=== PATIENT | female | born 1935 | race Caucasian/White ===

== ENCOUNTER → 2016-11-20 | Outpatient (CLI) | payer OTHER ==
[~2016-11-20] MED LIST: ACET-1256 PO; ASPCH81X PO; CHOL1CAP57 PO; CLOB-65 EXT; DIGO0.122 PO; FRS/40 PO; HMLI SC; INSDGI SC; LEVO50TA6 PO; METO50TA16 PO; METR0.7527 TOP; POTA-327 PO; PRED10TA PO; TRAM-453 PO; XRL15 PO; XRL20 PO; [UNRECOGNIZED DRUG - CODE] PO
[2016-11-20 13:42] LABS: ALT/SGPT 14 U/L (12-78); BLOOD UREA NITROGEN 17 mg/dl (7-18); BUN/CREATININE RATIO 23.7 (10-20); CALCIUM 8.8 mg/dl (8.5-10.1); CARBON DIOXIDE 29 mmol/L (21-32); CHLORIDE 108 mmol/L (98-107); GLUCOSE 83 mg/dl (70-99); POTASSIUM 3.9 mmol/L (3.5-5.1); SODIUM 145 mmol/L (136-145)
== END | disposition home or self-care (01) ==
LOC: C.LABMFLN 16:19
PROVIDERS: ATTEND Family Medicine
DX: E78.5 Hyperlipidemia, unspecified (principal); I10 Essential (primary) hypertension; E11.40 Type 2 diabetes mellitus with diabetic neuropathy, unspecified; E11.9 Type 2 diabetes mellitus without complications; E03.9 Hypothyroidism, unspecified; E55.9 Vitamin D deficiency, unspecified

== ENCOUNTER → 2017-03-28 | Outpatient (CLI) | payer OTHER ==
[2017-03-28 13:32] LABS: HEMATOCRIT 45.8 % (37-47); MEAN CELL VOLUME 96.8 fL (80-100); MEAN CORPUSCULAR HEMOGLOBIN 30.9 pg (25-34); MEAN CORPUSCULAR HGB CONC 31.9 g/dl (32-36); MEAN PLATELET VOLUME 9.9 fL (7.4-10.4); PLATELET COUNT 201 K/uL (130-400); RED BLOOD COUNT 4.73 M/uL (4.2-5.4)
[2017-03-28 13:34] LABS: ESTIMATED AVERAGE GLUCOSE 134 mg/dl; HA1C FLAG Normal (Normal)
[2017-03-28 14:18] LABS: BLOOD UREA NITROGEN 22 mg/dl (7-18); BUN/CREATININE RATIO 33.3 (10-20); CARBON DIOXIDE 28 mmol/L (21-32); CHLORIDE 107 mmol/L (98-107); CREATININE 0.66 mg/dl (0.60-1.20); GLUCOSE 52 mg/dl (70-99); POTASSIUM 3.8 mmol/L (3.5-5.1); SODIUM 143 mmol/L (136-145)
[2017-03-28 14:38] LABS: RATIO 6.8 mcg/mg (0-30.0)
[2017-03-28 14:49] LABS: CALCIUM 8.8 mg/dl (8.5-10.1)
== END | disposition home or self-care (01) ==
LOC: C.LABMFLN 11:52
PROVIDERS: ATTEND Family Medicine
DX: E11.9 Type 2 diabetes mellitus without complications (principal); E03.9 Hypothyroidism, unspecified; G50.0 Trigeminal neuralgia

== ENCOUNTER → 2017-04-25 | Outpatient (CLI) | payer OTHER ==
[2017-04-25 13:42] LABS: ESTIMATED AVERAGE GLUCOSE 134 mg/dl; HA1C FLAG Normal (Normal)
[2017-04-25 13:54] LABS: ALT/SGPT 19 U/L (12-78); CHOLESTEROL 216 mg/dl (0-200); CHOLESTEROL/HDL RATIO 5.3; HDL CHOLESTEROL 41 mg/dl; TRIGLYCERIDES 143 mg/dl (0-150); VERY LOW DENSITY LIPOPROT CALC 29 mg/dl
== END | disposition home or self-care (01) ==
LOC: C.LABMFLN 08:44
PROVIDERS: ATTEND Family Medicine
DX: E11.9 Type 2 diabetes mellitus without complications (principal); E78.5 Hyperlipidemia, unspecified; E03.9 Hypothyroidism, unspecified; E55.9 Vitamin D deficiency, unspecified

== ENCOUNTER → 2017-04-30 | Outpatient (CLI) | payer OTHER ==
--- NOTE | 2017-04-30 15:38 | MAMMOGRAPHY REPORT ---
UNILATERAL RIGHT DIGITAL DIAGNOSTIC MAMMOGRAM TOMOSYNTHESIS WITH CAD AND TARGETED RIGHT ULTRASOUND: CLINICAL HISTORY: The patient reports intermittent burning right breast pain for approximately 2 davida hs, which is most prominent in the right inferior breast but is somewhat diffuse. She denies any pal pable lumps, skin erythema, or other complaints. History of left mastectomy 29 years ago. TECHNIQUE: Breast tomosynthesis in addition to standard 2D mammography was performed. Current study was also evaluated with a Computer Aided Detection (CAD) system. Right CC and MLO 2-D and tomosynthe sis images were obtained. COMPARISON: Comparison is made to exams dated: 07/29/2016 aspiration, 07/29/2016 mammogram, 6 mammogram, 07/10/2016 ultrasound, 07/02/2016 mammogram, and 04/21/2015 mammogram - [facility]. BREAST COMPOSITION: There are scattered areas of fibroglandular density in the right breast. FINDINGS: There are no suspicious masses, calcifications, or areas of architectural distortion noted in the right breast. There has been no significant interval change compared to prior exams. Benign vascular calcifications are again noted. Targeted ultrasound was performed of the area of most prominent pain pointed out by the patient, in t he right inferior breast along the inframammary fold. No suspicious masses or other suspicious sonog raphic abnormalities are evident. IMPRESSION: ACR BI-RADS CATEGORY 2: BENIGN, TARGETED ULTRASOUND ACR BI-RADS CATEGORY 2: BENIGN No suspicious mammographic or sonographic abnormality to explain intermittent right breast burning pa in. There is no mammographic or targeted sonographic evidence of malignancy. Recommend clinical fol low-up for right breast pain, and recommend routine screening mammograms of the right breast in one y ear. The patient has been verbally notified of the results. Approximately 10% of breast cancers are not detected with mammography. A negative mammographic report should not delay biopsy if a clinically suggestive mass is present. Keyona Corea M.D. /:04/30/2017 11:25:39 [employer] Alt[employer]: Riddhi SANTORO)([place]), [facility] letter sent: Normal 1/2 BI-RADS Code: ACR BI-RADS Category 2: Benign Ultrasound BI-RADS: ACR BI-RADS Category 2: Benign
== END | disposition home or self-care (01) ==
LOC: C.MAMM 11:02
PROVIDERS: ATTEND Family Medicine
DX: N64.4 Mastodynia (principal); Z85.3 Personal history of malignant neoplasm of breast

== ENCOUNTER → 2017-09-26 | Outpatient (CLI) | payer OTHER ==
[2017-09-26 13:06] LABS: BLOOD UREA NITROGEN 20 mg/dl (7-18); BUN/CREATININE RATIO 30.8 (10-20); CALCIUM 8.6 mg/dl (8.5-10.1); CARBON DIOXIDE 28 mmol/L (21-32); CHLORIDE 108 mmol/L (98-107); CREATININE 0.66 mg/dl (0.60-1.20); GLUCOSE 103 mg/dl (70-99); POTASSIUM 3.5 mmol/L (3.5-5.1); SODIUM 141 mmol/L (136-145)
[2017-09-26 13:17] LABS: ESTIMATED AVERAGE GLUCOSE 143 mg/dl; HA1C FLAG Normal (Normal)
== END | disposition home or self-care (01) ==
LOC: C.LABMFLN 10:07
PROVIDERS: ATTEND Family Medicine
DX: Z00.00 Encounter for general adult medical examination without abnormal findings (principal); E78.5 Hyperlipidemia, unspecified; E11.9 Type 2 diabetes mellitus without complications; E55.9 Vitamin D deficiency, unspecified

== ENCOUNTER → 2017-12-22 | Outpatient (CLI) | payer OTHER | END | disposition home or self-care (01) | LOC: C.LABMFLN 10:52 | PROVIDERS: ATTEND Physician Assistant | DX: G50.0 Trigeminal neuralgia (principal) ==

== ENCOUNTER 2020-12-07 23:00 | Inpatient (IN) ==
--- NOTE | 2020-12-07 23:16 | Emergency Department Note ---
History of Present Illness General Chief complaint: Fall Stated complaint: FALL, RIGHT LEG PAIN Time Seen by Provider: 12/07/20 23:02 Source: patient Mode of arrival: EMS Limitations: no limitations History of Present Illness Provider complaint: fall, right hip pain Onset (ago): hour(s) 1 Location: hip Radiation: non-radiation Severity: moderate Pain Consistency: + constant Quality: + constant Relieved By: + none Exacerbated By: + movement Associated symptoms: + denies other symptoms Treatments prior to arrival: none This is an 85-year-old female presents the emergency department via EMS after a fall at home. Patient states she was feeling her usual state of health and is uncertain how she became off balance and fell, however she landed she thinks on her buttocks and right hip. Patient denies any prior injury or surgery to the right hip. Patient states she is pain at the right hip, worse with movement, however otherwise nonradiating. Patient denies any coming paresthesias. Patient denies any head injury or loss of consciousness. She denies any neck or back pain, chest pain, abdominal pain, trouble breathing. Patient denies any nausea or vomiting. Patient states she was headed towards bed, she did eat supper earlier in the evening, and did take usual Tylenol approximately 2 hours prior to the fall. Patient does live with family however they were already had to bed and did not directly witness her fall. Patient does use anticoagulation as she has a history of atrial fibrillation. Patient denies any other recent medication changes. Patient states she did receive her first Covid vaccine yesterday and has some slight soreness in the proximal right upper extremity from less. Patient denies any other change in diet or hydration, no other change in activity, no other known sick contacts or exposure to coronavirus. Pt seen during a time of high acuity and national emergency pandemic while wearing PPE. Home Medications Medication Instructions Recorded Confirmed Type cholecalciferol (vitamin D3) 50 2,000 units PO DAILY #90 cap 04/13/19 12/07/20 Rx mcg (2,000 unit) capsule nitroglycerin 0.4 mg sublingual 0.4 mg SL DIRECTED PRN 04/15/19 12/07/20 History tablet red yeast rice 600 mg capsule 600 mg PO BID cap 10/18/19 12/07/20 History levothyroxine 50 mcg tablet 50 mcg PO DAILY #90 tab 03/24/20 12/07/20 Rx apixaban 5 mg tablet 5 mg PO BID 08/08/20 12/07/20 History prednisone 10 mg tablet 10 mg PO DAILY #90 tab 08/21/20 12/07/20 Rx clobetasol 0.05 % topical cream 1 applic TOPICAL DAILY #30 g 09/08/20 12/07/20 Rx potassium chloride 20 mEq 40 meq PO DAILY 09/08/20 12/07/20 History tablet,extended release(part/cryst) torsemide 10 mg tablet 30 mg PO DAILY tab 09/08/20 12/07/20 History insulin lispro 100 unit/mL 6 unit SQ .COMPLEX #30 ml 09/25/20 12/07/20 Rx subcutaneous solution blood sugar diagnostic #100 ea 10/17/20 10/26/20 Rx metoprolol tartrate 25 mg tablet 25 mg PO BID #180 tab 10/26/20 12/07/20 Rx silver sulfadiazine 1 % topical 1 applic TOPICAL BID #25 g 11/07/20 12/07/20 Rx cream insulin glargine [Lantus U-100 24 unit SQ QAM 12/07/20 12/07/20 History Insulin] sertraline 50 mg PO DAILY 12/07/20 12/07/20 History Allergies Allergy/AdvReac Type Severity Reaction Status Date / Time Iodinated Contrast Media Allergy Intermediate HIVES PER Verified 12/07/20 23:24 PATIENT acetaminophen [From Percocet] Allergy Unknown CAN'T Verified 12/07/20 23:24 REMEMBER atorvastatin Allergy Unknown CAN'T Verified 12/07/20 23:24 REMEMBER blueberry Allergy Unknown CAN'T Verified 12/07/20 23:24 REMEMBER codeine Allergy Unknown CAN'T Verified 12/07/20 23:24 REMEMBER ezetimibe Allergy Unknown CAN'T Verified 12/07/20 23:24 REMEMBER fluvoxamine Allergy Unknown CAN'T Verified 12/07/20 23:24 REMEMBER glyburide Allergy Unknown CAN'T Verified 12/07/20 23:24 REMEMBER meperidine Allergy Unknown CAN'T Verified 12/07/20 23:24 REMEMBER metformin Allergy Unknown CAN'T Verified 12/07/20 23:24 REMEMBER minocycline Allergy Unknown CAN'T Verified 12/07/20 23:24 REMEMBER mycophenolate mofetil Allergy Unknown CAN'T Verified 12/07/20 23:24 REMEMBER oxycodone Allergy Unknown CAN'T Verified 12/07/20 23:24 REMEMBER pioglitazone Allergy Unknown CAN'T Verified 12/07/20 23:24 REMEMBER pravastatin Allergy Unknown CAN'T Verified 12/07/20 23:24 REMEMBER Vdxvxed-Tdi-Jnf Reductase Allergy Unknown CAN'T Verified 12/07/20 23:24 Inhibitor REMEMBER Sulfa (Sulfonamide Allergy Unknown CAN'T Verified 12/07/20 23:24 Antibiotics) REMEMBER tetracycline Allergy Unknown CAN'T Verified 12/07/20 23:24 REMEMBER tramadol Allergy Unknown CAN'T Verified 12/07/20 23:24 REMEMBER lisinopril AdvReac Mild Cough - Verified 10/26/20 10:50 Prinizide Past Med/Surg History Medical History Hypoxemia Interstitial lung disease Personal history of breast cancer Surgical History H/O cardiac catheterization H/O cataract extraction bilateral H/O tubal ligation History of modified radical mastectomy History of subtotal thyroidectomy Hx of cholecystectomy S/P arthrocentesis Total knee replacement status Family History Father Hypertension Diabetes Mother Stroke Mother Diabetes Aunt Breast cancer Brother Prostate cancer Other Myocardial infarction Denies family history of Ovarian cancer Lung cancer Colorectal cancer Social History Smoking Status: Never smoker Second Hand Exposure: No; Hx Alcohol Use: No Hx Substance Use: No Preferred Language: Wolof Communication Ability: Effective Visual Impairment: Partially Limited Hearing Ability: Hard of Hearing Staffing Assistant Required: No Beliefs That Will Affect Care: None marital status: / Current Living Situation: Alone Current Living Situation Comment: Lives at [facility] current occupational status: retired How many Children do You have: 3 Feels Safe at Home: Yes Childhood Exposure to Second-Hand Smoke: Yes Diet Comment: diabetic diet caffeine: Yes (1.5 cups a day, occasional peach tea) during the past year weight has: remained stable Dental Care, Regularly: Yes Physical Activity Frequency: Does not Exercise Seatbelt Use: always Sunscreen Use: No Assistive Devices: Denture - Upper, Glasses and Oxygen - at Night Review of Systems See HPI for pertinent positives & negatives. and A total of 10 systems reviewed and were otherwise negative Physical Exam Vital Signs Vital Signs - 24 hr 12/07/20 23:08 12/08/20 00:05 12/08/20 00:30 Temperature 36.7 C Temperature Source Oral Pulse Rate 67 68 64 Pulse Rate from SpO2 Sensor 68 64 Respiratory Rate 18 21 21 Blood Pressure 181/77 H 137/55 L 137/66 Blood Pressure Mean 111 82 89 Pulse Oximetry 90 95 95 Oxygen Delivery Method Room Air Room Air Sepsis Recent Fever Within 48 Hours No Sepsis New/Unexplained Change in Mental Status No Sepsis Action Taken by Nursing No Action Required 12/08/20 01:01 Temperature Temperature Source Pulse Rate 69 Pulse Rate from SpO2 Sensor 67 Respiratory Rate 22 Blood Pressure 134/87 Blood Pressure Mean 102 Pulse Oximetry 93 Oxygen Delivery Method Room Air Sepsis Recent Fever Within 48 Hours Sepsis New/Unexplained Change in Mental Status Sepsis Action Taken by Nursing GENERAL: alert, well appearing, well nourished, no distress, non-toxic HEAD: nc/at EYE EXAM: normal conjunctiva, PERRL and EOM's grossly intact OROPHARYNX: no exudate, no erythema, lips, buccal mucosa, and tongue normal and mucous membranes are moist NECK: supple, no nuchal rigidity, no adenopathy, non-tender, FROM LUNGS: Clear to auscultation. Normal chest wall mechanics, no w/r/r HEART: no murmurs, S1 normal and S2 normal, no chest wall tenderness with palpation, no crepitus ABDOMEN: abdomen soft, non-tender, normo-active bowel sounds, no masses, no rebound or guarding. No ecchymosis or evidence of trauma. BACK: Back is symmetrical on inspection and there is no deformity, no midline tenderness, no CVA tenderness. SKIN: no rashes and no bruising UPPER EXTREMITIES: upper extremities are grossly normal. FROM, nml pulses b/l. LOWER EXTREMITIES: No pitting edema. FROM at LLE, nml pulses b/l. Right lower extremity is held in external rotation and slightly shortened, pain with pa lpation over the right lateral hip. No evidence of ecchymosis or obvious deformity of the right hip. Sensation intact bilaterally. NEURO EXAM: Normal sensorium, cranial nerves II-XII grossly intact, normal speech, no gross weakness of arms, no gross weakness of legs. Gross sensation intact. Course Course 0005: Patient and daughter bedside updated on results and plan. Patient states many years ago she did see Dr. Loera of [facility] [place]. She also states the end of last year she had broken her upper left arm and was following with an orthopedic doctor down closer to [place]. Administered Medications Hydromorphone HCl (Hydromorphone Inj 0.5 Mg/0.5 Ml Syr) 0.5 mg IV Q3H PRN PRN Reason: Pain (6,7,8,9,10) Stop: 12/22/20 02:41 Last Admin: 12/08/20 03:19 Dose: 0.5 mg Documented by: [id number] Lactated Ringer's (Lr) 1,000 mls @ 150 mls/hr IV .[id number] [facility] Stop: 01/06/21 23:14 Last Admin: 12/08/20 05:33 Dose: 150 mls/hr Documented by: [id number] Infusion: 12/08/20 05:33 Dose: 150 mls/hr Documented by: [id number] Admin: 12/07/20 23:57 Dose: 150 mls/hr Documented by: [id number] Hydrocortisone Sodium (Succinate 100 mg/ Syringe) 2 mls @ 4 mls/min IV Q8H [facility] Stop: 01/07/21 03:59 Last Admin: 12/08/20 04:40 Dose: 4 mls/min Documented by: [id number] Insulin Aspart (Insulin Aspart 100 Units/Ml 3 Ml Pen) 0 units SC Q6 [facility] Stop: 01/07/21 05:59 Last Admin: 12/08/20 05:33 Dose: Not Given Documented by: [id number] Levothyroxine Sodium (Levothyroxine Sodium 50 Mcg Tablet) 50 mcg PO DAILYBB [facility] Stop: 01/07/21 06:29 Last Admin: 12/08/20 05:34 Dose: Not Given Documented by: [id number] Discontinued Medications Morphine Sulfate (Morphine Sulfate 2 Mg/Ml Carp) 2 mg IV Q1H PRN PRN Reason: Moderate Pain (Rating 3,4,5,6) Stop: 12/21/20 23:09 Last Admin: 12/08/20 02:08 Dose: 2 mg Documented by: [id number] Admin: 12/07/20 23:59 Dose: 2 mg Documented by: [id number] Medical Decision Making Differential Diagnosis Fracture, subluxation, dislocation, contusion, ligamentous injury, neurovascular, compartment syndrome, rhabdomyolysis, as well as other pathologies. Medical Records Attestation: I reviewed the patient's medical records. Home Medications Current Medication List: was personally reviewed by me Laboratory Data Attestation: I reviewed the patient's lab results. Result diagrams: 12/07/20 23:33 12/07/20 23:33 Lab Results 12/07/20 12/07/20 12/07/20 Range/Units 23:33 23:33 23:33 WBC 12.49 H (4.8-10.8) K/uL RBC 4.13 L (4.2-5.4) M/uL Hgb 13.1 (12.0-16.0) g/dL Hct 40.9 (37-47) % MCV 99.0 (80-100) fL MCH 31.7 (25-34) pg MCHC 32.0 (32-36) g/dL RDW Std Deviation 49.7 H (36.4-46.3) fL RDW Coeff of Héctor 13.7 (11.5-14.5) % Plt Count 185 (130-400) K/uL MPV 9.7 (7.4-10.4) fL Immature Gran % (Auto) 0.5 % Neut % (Auto) 60.9 % Lymph % (Auto) 29.4 % [place] % (Auto) 8.7 % Eos % (Auto) 0.3 % Baso % (Auto) 0.2 % Neut # (Auto) 7.61 H (1.4-6.5) K/uL Lymph # (Auto) 3.67 H (1.2-3.4) K/uL [place] # (Auto) 1.09 H (0.11-0.59) K/uL Eos # (Auto) 0.04 (0-0.5) K/uL Baso # (Auto) 0.02 (0-0.2) K/uL Immature Gran # (Auto) 0.06 H (0.00-0.02) K/uL PT 10.7 (9.0-12.0) Seconds INR 1.1 (0.9-1.1) APTT 23.0 (21.0-31.0) Seconds PTT Ratio 0.9 Sodium (136-145) mmol/L Potassium (3.5-5.1) mmol/L Chloride (98-107) mmol/L Carbon Dioxide (21-32) mmol/L Anion Gap (3-11) BUN (7-18) mg/dl Creatinine (0.6-1.2) mg/dl Est Cr Clr Drug Dosing ml/min Est GFR ( Amer) Est GFR (Non-Af Amer) BUN/Creatinine Ratio (10-20) Glucose (70-99) mg/dl Calcium (8.5-10.1) mg/dl Total Bilirubin (0.2-1) mg/dl AST (15-37) U/L ALT (12-78) U/L Alkaline Phosphatase (45-117) U/L Troponin I (0-0.045) ng/ml NT-Pro-B Natriuret Pep (0-1800) pg/ml Total Protein (6.4-8.2) gm/dl Albumin (3.4-5.0) gm/dl Globulin (2.5-4.0) gm/dl Albumin/Globulin Ratio (0.9-2) Urine Color Urine Appearance (Clear) Urine pH (4.5-7.5) Ur Specific [place] (1.000-1.030) Urine Protein (Negative) Urine Glucose (UA) (Negative) Urine Ketones (Negative) Urine Blood (Negative) Urine Nitrite (Negative) Urine Bilirubin (Negative) Urine Urobilinogen (Negative) Ur Leukocyte Esterase (Negative) COVID-19 Eval Order SARS-CoV-2, RNA, NAAT (NEGATIVE) Blood Type O Positive Antibody Screen NEGATIVE 12/07/20 12/07/20 12/08/20 Range/Units 23:33 23:56 00:08 WBC (4.8-10.8) K/uL RBC (4.2-5.4) M/uL Hgb (12.0-16.0) g/dL Hct (37-47) % MCV (80-100) fL MCH (25-34) pg MCHC (32-36) g/dL RDW Std Deviation (36.4-46.3) fL RDW Coeff of Héctor (11.5-14.5) % Plt Count (130-400) K/uL MPV (7.4-10.4) fL Immature Gran % (Auto) % Neut % (Auto) % Lymph % (Auto) % [place] % (Auto) % Eos % (Auto) % Baso % (Auto) % Neut # (Auto) (1.4-6.5) K/uL Lymph # (Auto) (1.2-3.4) K/uL [place] # (Auto) (0.11-0.59) K/uL Eos # (Auto) (0-0.5) K/uL Baso # (Auto) (0-0.2) K/uL Immature Gran # (Auto) (0.00-0.02) K/uL PT (9.0-12.0) Seconds INR (0.9-1.1) APTT (21.0-31.0) Seconds PTT Ratio Sodium 142 (136-145) mmol/L Potassium 4.1 (3.5-5.1) mmol/L Chloride 105 (98-107) mmol/L Carbon Dioxide 34 H (21-32) mmol/L Anion Gap 3.0 (3-11) BUN 26 H (7-18) mg/dl Creatinine 0.86 (0.6-1.2) mg/dl Est Cr Clr Drug Dosing 42.6 ml/min Est GFR ( Amer) 71.4 Est GFR (Non-Af Amer) 61.6 BUN/Creatinine Ratio 30.2 H (10-20) Glucose 185 H (70-99) mg/dl Calcium 8.8 (8.5-10.1) mg/dl Total Bilirubin 0.3 (0.2-1) mg/dl AST 14 L (15-37) U/L ALT 26 (12-78) U/L Alkaline Phosphatase 72 (45-117) U/L Troponin I < 0.015 (0-0.045) ng/ml NT-Pro-B Natriuret Pep 474 (0-1800) pg/ml Total Protein 6.8 (6.4-8.2) gm/dl Albumin 3.3 L (3.4-5.0) gm/dl Globulin 3.5 (2.5-4.0) gm/dl Albumin/Globulin Ratio 0.9 (0.9-2) Urine Color Yellow Urine Appearance Clear (Clear) Urine pH 5.0 (4.5-7.5) Ur Specific [place] 1.021 (1.000-1.030) Urine Protein Negative (Negative) Urine Glucose (UA) Negative (Negative) Urine Ketones Negative (Negative) Urine Blood Negative (Negative) Urine Nitrite Negative (Negative) Urine Bilirubin Negative (Negative) Urine Urobilinogen Negative (Negative) Ur Leukocyte Esterase Negative (Negative) COVID-19 Eval [email or web address] SARS-CoV-2, RNA, NAAT (NEGATIVE) Blood Type Antibody Screen 12/08/20 Range/Units 00:08 WBC (4.8-10.8) K/uL RBC (4.2-5.4) M/uL Hgb (12.0-16.0) g/dL Hct (37-47) % MCV (80-100) fL MCH (25-34) pg MCHC (32-36) g/dL RDW Std Deviation (36.4-46.3) fL RDW Coeff of Héctor (11.5-14.5) % Plt Count (130-400) K/uL MPV (7.4-10.4) fL Immature Gran % (Auto) % Neut % (Auto) % Lymph % (Auto) % [place] % (Auto) % Eos % (Auto) % Baso % (Auto) % Neut # (Auto) (1.4-6.5) K/uL Lymph # (Auto) (1.2-3.4) K/uL [place] # (Auto) (0.11-0.59) K/uL Eos # (Auto) (0-0.5) K/uL Baso # (Auto) (0-0.2) K/uL Immature Gran # (Auto) (0.00-0.02) K/uL PT (9.0-12.0) Seconds INR (0.9-1.1) APTT (21.0-31.0) Seconds PTT Ratio Sodium (136-145) mmol/L Potassium (3.5-5.1) mmol/L Chloride (98-107) mmol/L Carbon Dioxide (21-32) mmol/L Anion Gap (3-11) BUN (7-18) mg/dl Creatinine (0.6-1.2) mg/dl Est Cr Clr Drug Dosing ml/min Est GFR ( Amer) Est GFR (Non-Af Amer) BUN/Creatinine Ratio (10-20) Glucose (70-99) mg/dl Calcium (8.5-10.1) mg/dl Total Bilirubin (0.2-1) mg/dl AST (15-37) U/L ALT (12-78) U/L Alkaline Phosphatase (45-117) U/L Troponin I (0-0.045) ng/ml NT-Pro-B Natriuret Pep (0-1800) pg/ml Total Protein (6.4-8.2) gm/dl Albumin (3.4-5.0) gm/dl Globulin (2.5-4.0) gm/dl Albumin/Globulin Ratio (0.9-2) Urine Color Urine Appearance (Clear) Urine pH (4.5-7.5) Ur Specific [place] (1.000-1.030) Urine Protein (Negative) Urine Glucose (UA) (Negative) Urine Ketones (Negative) Urine Blood (Negative) Urine Nitrite (Negative) Urine Bilirubin (Negative) Urine Urobilinogen (Negative) Ur Leukocyte Esterase (Negative) COVID-19 Eval Order SARS-CoV-2, RNA, NAAT NEGATIVE (NEGATIVE) Blood Type Antibody Screen Imaging Data My Impression: right hip and pelvis: Right intertrochanteric hip fracture noted with mild displacement cxr: Single view chest x-ray reviewed and interpreted by me, patient with cardiomegaly, tortuous aorta and generous mediastinum, small pleural effusions noted, slightly increased interstitial markings bilaterally, no focal consolidation ECG Data Attestation: I personally reviewed and interpreted this ECG as follows: Indication: + other Rate (beats per minute): 61 Rhythm: + normal sinus ECG Intervals/blocks: + Normal QRS and + Normal QT ECG [place]: + Normal ECG ST segments: + Nonspecific ST abnormalities Additional Comments: Baseline artifact noted Blood Pressure Blood Pressure Findings: Elevated blood pressure Blood Pressure Disposition: Referred to patients primary care provider MDM Narrative This is an 85-year-old female who presents emergency department after a fall at a family residence. Patient denies any preceding or prodromal symptoms to sugge st syncopal event. Patient found to have her right lower extremity held in external rotation and shortening and a high suspicion for a hip fracture secondary to trauma. Labs drawn and sent, patient placed on a business solution analyst, and x-ray imaging performed. Patient appeared to have a right intertrochanteric hip fracture. Other labs reassuring. Patient started on IV fluids and given a small amount of IV morphine to help with pain control. Patient and family at bedside updated on all results and were in agreement with plan. Case discussed with hospitalist for additional evaluation and management. Patient is anticoagulated due to history of atrial fibrillation. Patient denied any head trauma or other concern for injury. I have a low suspicion despite use of anticoagulation for any additional occult traumatic injury. An order was placed for continuous cardiac monitoring. The monitor shows a rate of _56 with _normal sinus__ rhythm. Impression & Plan Acute pain of right hip, Fall, Closed intertrochanteric fracture of hip Discharge Plan Visit Data Chief Complaint: Fall Stated Complaint: FALL, RIGHT LEG PAIN ED Provider: Kendal Allison Discharge Problem: Acute pain of right hip, Fall, Closed intertrochanteric fracture of hip Patient Disposition: Admitted As Inpatient Discharge Instructions Interventions: ED Discharge Assessment Last Done: 12/08/20 02:26 Discharge Problem: Fall Qualifiers: Encounter type: initial encounter Qualified Code(s): W19.XXXA - Unspecified fall, initial encounter Closed intertrochanteric fracture of hip Qualifiers: Encounter type: initial encounter Fracture alignment: displaced Laterality: right Qualified Code(s): S72.141A - Displaced intertrochanteric fracture of right femur, initial encounter for closed fracture
[2020-12-07 23:51] LABS: Basophils # (auto) 0.02 K/uL (0-0.2); Basophils % (auto) 0.2 %; Eosinophils # (auto) 0.04 K/uL (0-0.5); Eosinophils % (auto) 0.3 %; Hematocrit (blood only) 40.9 % (37-47); Hemoglobin 13.1 g/dL (12.0-16.0); Immature Granulocytes # (auto) 0.06 K/uL (0.00-0.02); Immature Granulocytes % (auto) 0.5 %; Lymphocytes # (auto) 3.67 K/uL (1.2-3.4); Lymphocytes % (auto) 29.4 %; Mean Corpuscular Hemoglobin 31.7 pg (25-34); Mean Platelet Volume 9.7 fL (7.4-10.4); Monocytes # (auto) 1.09 K/uL (0.11-0.59); Monocytes % (auto) 8.7 %; Neutrophils # (auto) 7.61 K/uL (1.4-6.5); Neutrophils % (auto) 60.9 %; Platelet Count 185 K/uL (130-400); RDW Coefficient of Variation 13.7 % (11.5-14.5); RDW Standard Deviation 49.7 fL (36.4-46.3); Red Blood Count 4.13 M/uL (4.2-5.4); White Blood Count 12.49 K/uL (4.8-10.8)
[2020-12-07] MEDS: LACTATED RINGER'S 1,000 ML IV SCH (23:57)
[2020-12-07] MEDS: MoRPHine SULFATE 2 MG/ML CARP IV PRN (23:59)
[2020-12-08 00:02] LABS: INR 1.1 (0.9-1.1); Partial Thromboplastin Ratio 0.9; Prothrombin Time 10.7 Seconds (9.0-12.0)
[2020-12-08 00:12] LABS: Alanine Aminotransferase 26 U/L (12-78); Albumin Level 3.3 gm/dl (3.4-5.0); Aspartate Aminotransferase 14 U/L (15-37); BUN Creatinine Ratio 30.2 (10-20); Blood Urea Nitrogen 26 mg/dl (7-18); Calcium 8.8 mg/dl (8.5-10.1); Carbon Dioxide 34 mmol/L (21-32); Chloride 105 mmol/L (98-107); Creatinine Clr Calc Pharmacy 42.6 ml/min; Est GFR (African American) 71.4; Est GFR (Non-African American) 61.6; Glucose 185 mg/dl (70-99); Potassium 4.1 mmol/L (3.5-5.1); Sodium 142 mmol/L (136-145)
[2020-12-08 00:13] LABS: Appearance Urine Clear (Clear); Bilirubin Urine Negative (Negative); Blood Urine Negative (Negative); Color Urine Yellow; Glucose Urine UA Negative (Negative); Ketones Urine Negative (Negative); Leukocyte Esterase Urine Negative (Negative); Nitrite Urine Negative (Negative); Protein Urine Negative (Negative); Specific Gravity Urine 1.021 (1.000-1.030); Urobilinogen Urine Negative (Negative)
[2020-12-08 00:15] LABS: Albumin Globulin Ratio 0.9 (0.9-2); Alkaline Phosphatase 72 U/L (45-117); Bilirubin,Total 0.3 mg/dl (0.2-1); Globulin 3.5 gm/dl (2.5-4.0); Total Protein 6.8 gm/dl (6.4-8.2)
[2020-12-08 00:31] LABS: NT Pro B Type Natriuretic Pept 474 pg/ml (0-1800); Troponin I < 0.015 ng/ml (0-0.045)
[2020-12-08] MEDS ORDERED: HYDROCORTISONE SOD SUCCINATE 100 MG/2 ML VIAL IV SCH (02:00)
[2020-12-08] MEDS: MoRPHine SULFATE 2 MG/ML CARP IV PRN (02:08)
--- NOTE | 2020-12-08 02:15 | History & Physical Report ---
Date of Service December 08, 2020 Assessment & Plan Admission and Anticipated Discharge Date Admission Date: 85 yo F w/ past medical history of HTN, A. fib on Elliquis last dose 12/07 PM, IDDM, Hx. 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 HGB wnl. pain is well controlled. - admit med/surg - tele - NPO for potential surgery - Elijaxon held - Orthopedics consulted - pain medication with IV and oral options for moderate and severe pain - Monterroso placed - AM CBC EKG with new T wave inversion, trop nl, no chest pain - AM troponin - Cardiology consult for preoperative evaluation HTN - continue home metoprolol Hx. of PSYCHIATRIC THERAPIST - previously on Prednisone 10 mg maintenance - started Hyrochortizone IV 100 mg Q8H - could consider switching back to home regimen after 2-3 days IDDM - consulted pharmacy glycemic management given steroids Hypothyroidism - continue home Levothyroxine Anxiety/depression - continue home sertraline Code: full Diet: NPO COVID: negative 12/08 DVT prophylaxis: help due to preoperative status History of Present Illness Chief Complaint: fall / R hip pain Primary Care Provider: Randy Naik MD Nisreen Espinoza is here today with right hip pain after a fall. She was getting up, moved her cat off of her lap and started walking when she fell on her right side/butt. She did not trip, she did not feel like her legs gave out, and remembers the fall, before and after. No chest pain or palpitations around this time. She was on the ground for approx. 30 seconds when her daughter came and helped her up. She had severe pain in her right groin/hip worse with movement. She had her COVID shot one day prior and was feeling somewhat poor that day and "nervous" throughout the day. Her arm was sore but she did not note any other complications of the vaccination. She is conversing with me without trouble and daughter explains that she is at her baseline mentation. One month prior she fell and fractured her humerus. That fall was due to her tripping on her cane. Medical history includes PSYCHIATRIC THERAPIST formerly BOOP currently on maintenance steroids of 10mg prednisone. She has atrial fibrillation and is on Eliquis for this. She is insulin dependant diabetic taking lantus and humalog. She also has hypothyroidism and is on levothyroxine. Please update daughter Ashly Snow with any changes/updates [phone] Last dose of Elliquis was 2 PM. Allergies Allergy/AdvReac Type Severity Reaction Status Date / Time Iodinated Contrast Media Allergy Intermediate HIVES PER Verified 12/07/20 23:24 PATIENT acetaminophen [From Percocet] Allergy Unknown CAN'T Verified 12/07/20 23:24 REMEMBER atorvastatin Allergy Unknown CAN'T Verified 12/07/20 23:24 REMEMBER blueberry Allergy Unknown CAN'T Verified 12/07/20 23:24 REMEMBER codeine Allergy Unknown CAN'T Verified 12/07/20 23:24 REMEMBER ezetimibe Allergy Unknown CAN'T Verified 12/07/20 23:24 REMEMBER fluvoxamine Allergy Unknown CAN'T Verified 12/07/20 23:24 REMEMBER glyburide Allergy Unknown CAN'T Verified 12/07/20 23:24 REMEMBER meperidine Allergy Unknown CAN'T Verified 12/07/20 23:24 REMEMBER metformin Allergy Unknown CAN'T Verified 12/07/20 23:24 REMEMBER minocycline Allergy Unknown CAN'T Verified 12/07/20 23:24 REMEMBER mycophenolate mofetil Allergy Unknown CAN'T Verified 12/07/20 23:24 REMEMBER oxycodone Allergy Unknown CAN'T Verified 12/07/20 23:24 REMEMBER pioglitazone Allergy Unknown CAN'T Verified 12/07/20 23:24 REMEMBER pravastatin Allergy Unknown CAN'T Verified 12/07/20 23:24 REMEMBER Vutzxtf-[id number]-[id number] Reductase Allergy Unknown CAN'T Verified 12/07/20 23:24 Inhibitor REMEMBER Sulfa (Sulfonamide Allergy Unknown CAN'T Verified 12/07/20 23:24 Antibiotics) REMEMBER tetracycline Allergy Unknown CAN'T Verified 12/07/20 23:24 REMEMBER tramadol Allergy Unknown CAN'T Verified 12/07/20 23:24 REMEMBER lisinopril AdvReac Mild Cough - Verified 10/26/20 10:50 Prinizide Home Medications Medication Instructions Recorded Confirmed Type cholecalciferol (vitamin D3) 50 2,000 units PO DAILY #90 cap 04/13/19 12/07/20 Rx mcg (2,000 unit) capsule nitroglycerin 0.4 mg sublingual 0.4 mg SL DIRECTED PRN 04/15/19 12/07/20 History tablet red yeast rice 600 mg capsule 600 mg PO BID cap 10/18/19 12/07/20 History levothyroxine 50 mcg tablet 50 mcg PO DAILY #90 tab 03/24/20 12/07/20 Rx apixaban 5 mg tablet 5 mg PO BID 08/08/20 12/07/20 History prednisone 10 mg tablet 10 mg PO DAILY #90 tab 08/21/20 12/07/20 Rx clobetasol 0.05 % topical cream 1 applic TOPICAL DAILY #30 g 09/08/20 12/07/20 Rx potassium chloride 20 mEq 40 meq PO DAILY 09/08/20 12/07/20 History tablet,extended release(part/cryst) torsemide 10 mg tablet 30 mg PO DAILY tab 09/08/20 12/07/20 History insulin lispro 100 unit/mL 6 unit SQ .COMPLEX #30 ml 09/25/20 12/07/20 Rx subcutaneous solution blood sugar diagnostic #100 ea 10/17/20 10/26/20 Rx metoprolol tartrate 25 mg tablet 25 mg PO BID #180 tab 10/26/20 12/07/20 Rx silver sulfadiazine 1 % topical 1 applic TOPICAL BID #25 g 11/07/20 12/07/20 Rx cream insulin glargine [Lantus U-100 24 unit SQ QAM 12/07/20 12/07/20 History Insulin] sertraline 50 mg PO DAILY 12/07/20 12/07/20 History Past Med/Surg History Medical History (Updated 12/08/20 @ 15:49 by Nereyda Emerson DO) (HFpEF) heart failure with preserved ejection fraction Acute pain of right hip Afib (01/07/14) BOOP (bronchiolitis obliterans with organizing pneumonia) CAD (coronary artery disease) Decubitus ulcers Diabetes DVT (deep venous thrombosis) (01/06/14) Hypertension Hypoxemia Interstitial lung disease PAF (paroxysmal atrial fibrillation) Personal history of breast cancer Surgical History H/O cardiac catheterization H/O cataract extraction bilateral H/O tubal ligation History of modified radical mastectomy History of subtotal thyroidectomy Hx of cholecystectomy S/P arthrocentesis Total knee replacement status Family History Father Hypertension Diabetes Mother Stroke Mother Diabetes Aunt Breast cancer Brother Prostate cancer Other Myocardial infarction Denies family history of Ovarian cancer Lung cancer Colorectal cancer Social History Smoking Status: Never smoker Second Hand Exposure: No; Hx Alcohol Use: No Hx Substance Use: No Preferred Language: Pakistani Communication Ability: Effective Visual Impairment: Partially Limited Hearing Ability: Hard of Hearing Head Of Music Required: No Beliefs That Will Affect Care: None marital status: / Current Living Situation: Alone Current Living Situation Comment: Lives at [facility] current occupational status: retired How many Children do You have: 3 Feels Safe at Home: Yes Childhood Exposure to Second-Hand Smoke: Yes Diet Comment: diabetic diet caffeine: Yes (1.5 cups a day, occasional peach tea) during the past year weight has: remained stable Dental Care, Regularly: Yes Physical Activity Frequency: Does not Exercise Seatbelt Use: always Sunscreen Use: No Assistive Devices: Denture - Upper, Glasses and Oxygen - at Night Review of Systems Review of Systems: Constitutional: denies fevers, chills, vomiting, night sweats, weight gain admits chronic fatigue Head: denies trauma, LOC, vision changes Neuro: denies syncope, slurred speech, focal weakness, numbness or tingling ENT: denies stuffiness, sneezing, sore throat Cardiac: denies chest pain, palpitations, leg swelling prior Pulm.: denies cough, shortness of breath GI: denies diarrhea, constipation, changes in bowel habits : denies dysuria and symptoms of a UTI Physical Exam Constitutional: well developed and well nourished; not ill appearing Eyes: PERRL, conjunctivae normal, anicteric sclerae ENMT: external ear and nose normal, oropharynx normal Neck: normal visual inspection Respiratory: normal respiratory effort, lungs clear to auscultation Cardiovascular: RRR, no murmur, no edema Gastrointestinal (Abdomen): normal bowel sounds, soft, nontender, no hepatosplenomegaly Musculoskeletal: point of maximal tenderness at the right hip anterior pulses PT and DP appreciated in RLE sensation intact to light touch intact to RLE Skin: no rashes, warm and dry Neurologic: Speech / Cognition: normal speech Motor/Sensory: no tremor Psychiatric: A+Ox3, euthymic affect Results & Data Results & Data ([facility]) Vital Signs (Past 12 Hours) Vital Signs Temp Pulse Resp BP Pulse Ox 12/08/20 02:00 68 22 133/68 90 12/08/20 01:01 69 22 134/87 93 12/08/20 00:30 64 21 137/66 95 12/08/20 00:05 68 21 137/55 L 95 12/07/20 23:08 36.7 C 67 18 181/77 H 90 CBC Results Results Complete Blood Count Results: RBC 4.13 M/uL (4.2-5.4) L 12/07/20 WBC 12.49 K/uL (4.8-10.8) H 12/07/20 Hgb 13.1 g/dL (12.0-16.0) 12/07/20 Hct 40.9 % (37-47) 12/07/20 Plt Count 185 K/uL (130-400) 12/07/20 Chemistry (BMP) Results BMP Results: Sodium 142 mmol/L (136-145) 12/07/20 Potassium 4.1 mmol/L (3.5-5.1) 12/07/20 Chloride 105 mmol/L (98-107) 12/07/20 BUN 26 mg/dl (7-18) H 12/07/20 Creatinine 0.86 mg/dl (0.6-1.2) 12/07/20 Glucose 185 mg/dl (70-99) H 12/07/20 Code Status & VTE Plan VTE Prophylaxis Plan VTE Prophylaxis will be ordered: No Supervising Physician Co-Signing Physician Notes Attending addendum: I have physically seen this patient, have supervised the medical residents activities, and agree with the H&P unless as otherwise noted. Assessment and Plan: Closed right intertrochanteric hip fracture- Status post fall NPO Hold Eliquis Pain control as noted Monterroso catheter EKG with lateral T wave inversions/hypertension- The patient will be admitted to [facility] with telemetry for serial cardiac enzymes, serial EKG's, cardiac rhythm monitoring and a 2-D echocardiogram with Dopplers. Continue metoprolol Consult cardiology Chronic prednisone use- Hold prednisone. Placed on stress dose Hydrocortisone 100 mg IV every 8 hours Remainder of orders and notations as noted Resident Activity Tracking Resident Involvement: Resident Care Provided Care Provided: Adult [facility]
[2020-12-08] MEDS ORDERED: MAGNESIUM HYDROXIDE SUSP 30 ML UDC PO PRN (02:42)
[2020-12-08] MEDS ORDERED: oxyCODONE HCL IR 5 MG TAB (IMMEDIATE RELEASE) PO PRN (02:42)
[2020-12-08] MEDS ORDERED: NALOXONE HCL 0.4 MG/1 ML VIAL/CARP IV PRN (02:42)
[2020-12-08] MEDS ORDERED: bisacodyL 10 MG SUPP PR PRN (02:42)
[2020-12-08] MEDS ORDERED: HYDROmorphone INJ 0.5 MG/0.5 ML SYR IV PRN (02:42)
[2020-12-08] MEDS ORDERED: POLYETHYLENE (MIRALAX) 17 GM PACK PO PRN (02:42)
[2020-12-08] MEDS ORDERED: PHARMACY GLYCEMIC MGMT CONSULT PRN (02:57)
[2020-12-08] MEDS ORDERED: GLUCOSE 10 TABS/TUBE PO PRN (03:00)
[2020-12-08] MEDS ORDERED: DEXTROSE 50% 50 ML SYRINGE IV PRN (03:00)
[2020-12-08] MEDS ORDERED: GLUCAGON FOR INJ 1 MG VIAL SQ PRN (03:00)
[2020-12-08] MEDS ORDERED: GLUCOSE 40% GEL 15 GM TUBE PO PRN (03:00)
[2020-12-08] MEDS ORDERED: CARBOHYDRATES FOR HYPOGLYCEMIA PO PRN (03:00)
[2020-12-08] MEDS: HYDROmorphone INJ 0.5 MG/0.5 ML SYR IV PRN (03:19)
[2020-12-08] MEDS: HYDROCORTISONE SOD 100 MG in SYRINGE 0 ML IV SCH ×3 (04:40→19:36)
[2020-12-08] MEDS: LACTATED RINGER'S 1,000 ML IV SCH ×3 (05:33→19:36)
[2020-12-08] MEDS: LEVOTHYROXINE SODIUM 50 MCG TABLET PO SCH (05:34)
[2020-12-08] MEDS ORDERED: INSULIN ASPART 100 UNITS/ML 3 ML PEN SC SCH (06:00)
--- NOTE | 2020-12-08 07:33 | XRay Report ---
XR hip RT min 2V CLINICAL HISTORY: Right hip pain status post trauma COMPARISON: None. DISCUSSION: There is an acute intertrochanteric right hip fracture. There is no dislocation. IMPRESSION: Acute intertrochanteric right hip fracture ACT 112: Negative or not required by law. Electronically signed by: César Crespo M.D. 12/08/2020 7:32 AM
--- NOTE | 2020-12-08 07:33 | XRay Report ---
XR chest 1V portable CLINICAL HISTORY: trauma COMPARISON STUDY: February 2016 FINDINGS: The heart is enlarged. There is mild mediastinal widening. There is aortic tortuosity/ectas ia. There is chronic interstitial thickening. There is blunting of both lateral costophrenic angles. Small effusions cannot be excluded. There are persistent basilar opacities likely representing atele ctasis/scarring.. IMPRESSION: 1. Cardiomegaly and chronic interstitial thickening. An L1 of mild pulmonary vascular congestion ga ot be excluded and element of mild pulmonary vascular congestion cannot be excluded. 2. Chronic basilar opacities, likely representing atelectasis/scarring 3. Stable blunting of the lateral costophrenic angles ACT 112: Negative or not required by law. Electronically signed by: César Crespo M.D. 12/08/2020 7:31 AM
[2020-12-08] MEDS: SERTRALINE HCL 50 MG TABLET PO SCH (07:49)
[2020-12-08] MEDS: METOPROLOL TARTRATE 25 MG TAB PO SCH ×2 (07:49→19:36)
[2020-12-08] MEDS: oxyCODONE HCL IR 5 MG TAB (IMMEDIATE RELEASE) PO PRN (07:53)
[2020-12-08] MEDS: INSULIN ASPART 100 UNITS/ML 3 ML PEN SC SCH ×4 (08:39→21:04)
--- NOTE | 2020-12-08 08:45 | Cardiology Consultation ---
Date of Consultation December 08, 2020 Assessment & Plan (1) Preop cardiovascular exam: (2) CAD (coronary artery disease): (3) (HFpEF) heart failure with preserved ejection fraction: (4) PAF (paroxysmal atrial fibrillation): (5) Closed intertrochanteric fracture of hip: (6) Interstitial lung disease: It was my pleasure to see Mrs. Espinoza in consultation today. Given her lack of cardiac symptoms but history of coronary artery disease, diastolic dysfunction and chronic respiratory failure she was counseled that I would place her as a high risk for any adverse perioperative cardiovascular event with her wrist being approximately 5%. She was further counseled that no further cardiac testing or intervention would further lower that risk. She states that she understands, she is accepting of that risk and wishes to proceed with the surgery. Her last dose of Eliquis was last night and obviously will be held throughout the perioperative period and should be restarted once the risk of bleeding is acceptable postoperatively. Her volume status should be followed clinically. Her beta-mounika should be continued throughout the perioperative period uninterrupted to further lower her perioperative cardiovascular risk. History of Present Illness Reason for Consultation: Preop cardiac risk assessment Requesting Physician: Dr. Fontaine Attending Physician: Hoang Fontaine History of Present Illness Mrs. Espinoza is a very pleasant 85-year-old woman who routinely follows with Dr. Emerson of our cardiology practice. She presented to [facility] on 12/08/2020 with complaints of right hip pain status post mechanical fall. The patient states that she was in her normal state of health and then went to move her cat off of the couch and she tripped. She fell onto her right side and immediately developed hip pain. Her daughter was able to help her up and brought her into the emergency department. She denies any cardiac complaints of chest pain, shortness of breath, palpitations, lightheadedness, dizziness or syncope. She states that she has been compliant with her medication and oxygen at home. Cardiac history from most recent outpatient note: 1. Paroxysmal atrial fibrillation, failed flecainide treatment, unable to take amiodarone 2. Chronic HFpEF 3. Hypertension 4. CAD, atherosclerotic changes in aorta and coronary arteries by chest CT 07/08 5. DM II 6. Chronic respiratory failure, requires 2 L O2 at night. Allergies Allergy/AdvReac Type Severity Reaction Status Date / Time Iodinated Contrast Media Allergy Intermediate HIVES PER Verified 12/07/20 23:24 PATIENT acetaminophen [From Percocet] Allergy Unknown CAN'T Verified 12/07/20 23:24 REMEMBER atorvastatin Allergy Unknown CAN'T Verified 12/07/20 23:24 REMEMBER blueberry Allergy Unknown CAN'T Verified 12/07/20 23:24 REMEMBER codeine Allergy Unknown CAN'T Verified 12/07/20 23:24 REMEMBER ezetimibe Allergy Unknown CAN'T Verified 12/07/20 23:24 REMEMBER fluvoxamine Allergy Unknown CAN'T Verified 12/07/20 23:24 REMEMBER glyburide Allergy Unknown CAN'T Verified 12/07/20 23:24 REMEMBER meperidine Allergy Unknown CAN'T Verified 12/07/20 23:24 REMEMBER metformin Allergy Unknown CAN'T Verified 12/07/20 23:24 REMEMBER minocycline Allergy Unknown CAN'T Verified 12/07/20 23:24 REMEMBER mycophenolate mofetil Allergy Unknown CAN'T Verified 12/07/20 23:24 REMEMBER oxycodone Allergy Unknown CAN'T Verified 12/07/20 23:24 REMEMBER pioglitazone Allergy Unknown CAN'T Verified 12/07/20 23:24 REMEMBER pravastatin Allergy Unknown CAN'T Verified 12/07/20 23:24 REMEMBER Dcpoata-Xvw-Slc Reductase Allergy Unknown CAN'T Verified 12/07/20 23:24 Inhibitor REMEMBER Sulfa (Sulfonamide Allergy Unknown CAN'T Verified 12/07/20 23:24 Antibiotics) REMEMBER tetracycline Allergy Unknown CAN'T Verified 12/07/20 23:24 REMEMBER tramadol Allergy Unknown CAN'T Verified 12/07/20 23:24 REMEMBER lisinopril AdvReac Mild Cough - Verified 10/26/20 10:50 Prinizide Home Medications Medication Instructions Recorded Confirmed Type cholecalciferol (vitamin D3) 50 2,000 units PO DAILY #90 cap 04/13/19 12/07/20 Rx mcg (2,000 unit) capsule nitroglycerin 0.4 mg sublingual 0.4 mg SL DIRECTED PRN 04/15/19 12/07/20 History tablet red yeast rice 600 mg capsule 600 mg PO BID cap 10/18/19 12/07/20 History levothyroxine 50 mcg tablet 50 mcg PO DAILY #90 tab 03/24/20 12/07/20 Rx apixaban 5 mg tablet 5 mg PO BID 08/08/20 12/07/20 History prednisone 10 mg tablet 10 mg PO DAILY #90 tab 08/21/20 12/07/20 Rx clobetasol 0.05 % topical cream 1 applic TOPICAL DAILY #30 g 09/08/20 12/07/20 Rx potassium chloride 20 mEq 40 meq PO DAILY 09/08/20 12/07/20 History tablet,extended release(part/cryst) torsemide 10 mg tablet 30 mg PO DAILY tab 09/08/20 12/07/20 History insulin lispro 100 unit/mL 6 unit SQ .COMPLEX #30 ml 09/25/20 12/07/20 Rx subcutaneous solution blood sugar diagnostic #100 ea 10/17/20 10/26/20 Rx metoprolol tartrate 25 mg tablet 25 mg PO BID #180 tab 10/26/20 12/07/20 Rx silver sulfadiazine 1 % topical 1 applic TOPICAL BID #25 g 11/07/20 12/07/20 Rx cream insulin glargine [Lantus U-100 24 unit SQ QAM 12/07/20 12/07/20 History Insulin] sertraline 50 mg PO DAILY 12/07/20 12/07/20 History Patient History Medical History (Updated 12/08/20 @ 09:16 by Frederick Bacon DO) Hypoxemia Interstitial lung disease Personal history of breast cancer Surgical History H/O cardiac catheterization H/O cataract extraction bilateral H/O tubal ligation History of modified radical mastectomy History of subtotal thyroidectomy Hx of cholecystectomy S/P arthrocentesis Total knee replacement status Family History Father Hypertension Diabetes Mother Stroke Mother Diabetes Aunt Breast cancer Brother Prostate cancer Other Myocardial infarction Denies family history of Ovarian cancer Lung cancer Colorectal cancer Social History Smoking Status: Never smoker Second Hand Exposure: No; Hx Alcohol Use: No Hx Substance Use: No Preferred Language: [place] Helen[place] Communication Ability: Effective Visual Impairment: Partially Limited Hearing Ability: Hard of Hearing Fuse Cup Expander Required: No Beliefs That Will Affect Care: None marital status: / Current Living Situation: Alone Current Living Situation Comment: Lives at [facility] current occupational status: retired How many Children do You have: 3 Feels Safe at Home: Yes Childhood Exposure to Second-Hand Smoke: Yes Diet Comment: diabetic diet caffeine: Yes (1.5 cups a day, occasional peach tea) during the past year weight has: remained stable Dental Care, Regularly: Yes Physical Activity Frequency: Does not Exercise Seatbelt Use: always Sunscreen Use: No Assistive Devices: Denture - Upper, Glasses and Oxygen - at Night Review of Systems Review of Systems: All systems reviewed & are unremarkable except as noted in HPI & below Physical Exam Physical Exam: General: Awake, alert and oriented x 3. No acute distress. HEENT: Normocephalic, atraumatic. Pupils equal, round and reactive to light and accommodation. Extraocular muscles are intact. Anicteric sclera. Moist mucous membranes. Neck: No JVD. No bruit. Cardiovascular: irregularly irregular, unable to appreciate murmur, rub or gallop. Pulmonary: Clear to auscultation bilaterally. No rales, rhonchi, or wheezing. Abdomen: Bowel sounds x 4, soft. No rebound, guarding or tenderness. No organomegaly. Extremities: No clubbing, cyanosis or edema. +2 pedal pulses bilaterally. Skin: Warm and dry. Results & Data ([facility]) Vital Signs (Past 12 Hours) Vital Signs Temp Pulse Pulse Resp BP BP Pulse Ox 12/08/20 07:36 36.5 C 73 20 138/80 98 12/08/20 07:15 64 12/08/20 04:30 72 12/08/20 02:40 36.5 C 53 L 20 142/68 H 91 12/08/20 02:00 68 22 133/68 90 12/08/20 01:01 69 22 134/87 93 12/08/20 00:30 64 21 137/66 95 12/08/20 00:05 68 21 137/55 L 95 12/07/20 23:08 36.7 C 67 18 181/77 H 90 Laboratory Results Laboratory Results - last 24 hr 12/07/20 12/07/20 12/07/20 23:33 23:33 23:33 WBC 12.49 H RBC 4.13 L Hgb 13.1 Hct 40.9 MCV 99.0 MCH 31.7 MCHC 32.0 RDW Std Deviation 49.7 H RDW Coeff of Héctor 13.7 Plt Count 185 MPV 9.7 Immature Gran % (Auto) 0.5 Neut % (Auto) 60.9 Lymph % (Auto) 29.4 [place] % (Auto) 8.7 Eos % (Auto) 0.3 Baso % (Auto) 0.2 Neut # (Auto) 7.61 H Lymph # (Auto) 3.67 H [place] # (Auto) 1.09 H Eos # (Auto) 0.04 Baso # (Auto) 0.02 Immature Gran # (Auto) 0.06 H PT 10.7 INR 1.1 APTT 23.0 PTT Ratio 0.9 Sodium Potassium Chloride Carbon Dioxide Anion Gap BUN Creatinine Est Cr Clr Drug Dosing Est GFR ( Amer) Est GFR (Non-Af Amer) BUN/Creatinine Ratio Glucose POC Glucose Calcium Total Bilirubin AST ALT Alkaline Phosphatase Troponin I NT-Pro-B Natriuret Pep Total Protein Albumin Globulin Albumin/Globulin Ratio Urine Color Urine Appearance Urine pH Ur Specific [place] Urine Protein Urine Glucose (UA) Urine Ketones Urine Blood Urine Nitrite Urine Bilirubin Urine Urobilinogen Ur Leukocyte Esterase COVID-19 Eval Order SARS-CoV-2, RNA, NAAT Blood Type O Positive Antibody Screen NEGATIVE 12/07/20 12/07/20 12/08/20 23:33 23:56 00:08 WBC RBC Hgb Hct MCV MCH MCHC RDW Std Deviation RDW Coeff of Héctor Plt Count MPV Immature Gran % (Auto) Neut % (Auto) Lymph % (Auto) [place] % (Auto) Eos % (Auto) Baso % (Auto) Neut # (Auto) Lymph # (Auto) [place] # (Auto) Eos # (Auto) Baso # (Auto) Immature Gran # (Auto) PT INR APTT PTT Ratio Sodium 142 Potassium 4.1 Chloride 105 Carbon Dioxide 34 H Anion Gap 3.0 BUN 26 H Creatinine 0.86 Est Cr Clr Drug Dosing 42.6 Est GFR ( Amer) 71.4 Est GFR (Non-Af Amer) 61.6 BUN/Creatinine Ratio 30.2 H Glucose 185 H POC Glucose Calcium 8.8 Total Bilirubin 0.3 AST 14 L ALT 26 Alkaline Phosphatase 72 Troponin I < 0.015 NT-Pro-B Natriuret Pep 474 Total Protein 6.8 Albumin 3.3 L Globulin 3.5 Albumin/Globulin Ratio 0.9 Urine Color Yellow Urine Appearance Clear Urine pH 5.0 Ur Specific [place] 1.021 Urine Protein Negative Urine Glucose (UA) Negative Urine Ketones Negative Urine Blood Negative Urine Nitrite Negative Urine Bilirubin Negative Urine Urobilinogen Negative Ur Leukocyte Esterase Negative COVID-19 Eval [facility] SARS-CoV-2, RNA, NAAT Blood Type Antibody Screen 12/08/20 12/08/20 12/08/20 00:08 05:32 06:04 WBC RBC Hgb Hct MCV MCH MCHC RDW Std Deviation RDW Coeff of Héctor Plt Count MPV Immature Gran % (Auto) Neut % (Auto) Lymph % (Auto) [place] % (Auto) Eos % (Auto) Baso % (Auto) Neut # (Auto) Lymph # (Auto) [place] # (Auto) Eos # (Auto) Baso # (Auto) Immature Gran # (Auto) PT INR APTT PTT Ratio Sodium Potassium Chloride Carbon Dioxide Anion Gap BUN Creatinine Est Cr Clr Drug Dosing Est GFR ( Amer) Est GFR (Non-Af Amer) BUN/Creatinine Ratio Glucose POC Glucose 127 H Calcium Total Bilirubin AST ALT Alkaline Phosphatase Troponin I < 0.015 NT-Pro-B Natriuret Pep Total Protein Albumin Globulin Albumin/Globulin Ratio Urine Color Urine Appearance Urine pH Ur Specific [place] Urine Protein Urine Glucose (UA) Urine Ketones Urine Blood Urine Nitrite Urine Bilirubin Urine Urobilinogen Ur Leukocyte Esterase COVID-19 Eval Order SARS-CoV-2, RNA, NAAT NEGATIVE Blood Type Antibody Screen 12/08/20 07:15 WBC RBC Hgb Hct MCV MCH MCHC RDW Std Deviation RDW Coeff of Héctor Plt Count MPV Immature Gran % (Auto) Neut % (Auto) Lymph % (Auto) [place] % (Auto) Eos % (Auto) Baso % (Auto) Neut # (Auto) Lymph # (Auto) [place] # (Auto) Eos # (Auto) Baso # (Auto) Immature Gran # (Auto) PT INR APTT PTT Ratio Sodium Potassium Chloride Carbon Dioxide Anion Gap BUN Creatinine Est Cr Clr Drug Dosing Est GFR ( Amer) Est GFR (Non-Af Amer) BUN/Creatinine Ratio Glucose POC Glucose 156 H Calcium Total Bilirubin AST ALT Alkaline Phosphatase Troponin I NT-Pro-B Natriuret Pep Total Protein Albumin Globulin Albumin/Globulin Ratio Urine Color Urine Appearance Urine pH Ur Specific [place] Urine Protein Urine Glucose (UA) Urine Ketones Urine Blood Urine Nitrite Urine Bilirubin Urine Urobilinogen Ur Leukocyte Esterase COVID-19 Eval Order SARS-CoV-2, RNA, NAAT Blood Type Antibody Screen Diagnostic Findings 2D echocardiogram from 08/28/2020: Calculated LV ejection Fraction = 69% (bi-plane method of discs). The right ventricular systolic function is normal as assessed by tricuspid annular plane systolic excursion (TAPSE) (normal >1.7 cm). The right ventricular cavity size is normal (basal dimension < 4.2 cm RV apical 4 chamber view). The left atrium is severely enlarged (>48 ml/m^2,). Mild mitral regurgitation is present. Mild tricuspid regurgitation is present. Medications Administered Current Inpatient Medications Bisacodyl (Bisacodyl 10 Mg Supp) 10 mg TN DAILY PRN PRN Reason: Constipation Stop: 01/07/21 02:41 Dextrose (Dextrose 50% 50 Ml Syringe) 25 - 50 ml IV UD PRN; Protocol PRN Reason: Hypoglycemia Protocol Stop: 01/07/21 02:59 Glucagon (Glucagon For Inj 1 Mg Vial) 1 mg SQ UD PRN; Protocol PRN Reason: Hypoglycemia Protocol Stop: 01/07/21 02:59 Glucose (Glucose 40% Gel 15 Gm Tube) 15 - 30 gm PO UD PRN; Protocol PRN Reason: Hypoglycemia Protocol Stop: 01/07/21 02:59 Glucose (Glucose 10 Tabs/Tube) 4 - 8 tabs PO UD PRN; Protocol PRN Reason: Hypoglycemia Protocol Stop: 01/07/21 02:59 Hydromorphone HCl (Hydromorphone Inj 0.5 Mg/0.5 Ml Syr) 0.25 mg IV Q3H PRN PRN Reason: Pain (1,2,3,4,5) & Pre PT Stop: 12/22/20 02:41 Hydromorphone HCl (Hydromorphone Inj 0.5 Mg/0.5 Ml Syr) 0.5 mg IV Q3H PRN PRN Reason: Pain (6,7,8,9,10) Stop: 12/22/20 02:41 Last Admin: 12/08/20 03:19 Dose: 0.5 mg Documented by: Lactated Ringer's (Lr) 1,000 mls @ 150 mls/hr IV .Q6H40M [facility] Stop: 01/06/21 23:14 Last Admin: 12/08/20 05:33 Dose: 150 mls/hr Documented by: Hydrocortisone Sodium (Succinate 100 mg/ Syringe) 2 mls @ 4 mls/min IV Q8H [facility] Stop: 01/07/21 03:59 Last Admin: 12/08/20 04:40 Dose: 4 mls/min Documented by: Insulin Aspart (Insulin Aspart 100 Units/Ml 3 Ml Pen) 0 units SC ACHS [facility] Stop: 01/07/21 07:59 Last Admin: 12/08/20 08:39 Dose: 2 units Documented by: Levothyroxine Sodium (Levothyroxine Sodium 50 Mcg Tablet) 50 mcg PO DAILYBB [facility] Stop: 01/07/21 06:29 Last Admin: 12/08/20 05:34 Dose: Not Given Documented by: Magnesium Hydroxide (Magnesium Hydroxide Susp 30 Ml Udc) 30 ml PO DAILY PRN PRN Reason: Constipation Stop: 01/07/21 02:41 Metoprolol Tartrate (Metoprolol Tartrate 25 Mg Tab) 25 mg PO BID [facility] Stop: 01/07/21 08:59 Last Admin: 12/08/20 07:49 Dose: 25 mg Documented by: Miscellaneous (Carbohydrates For Hypoglycemia ) 15 - 30 gm PO UD PRN PRN Reason: Hypoglycemia Treatment Stop: 01/07/21 02:59 Miscellaneous Information (Pharmacy Glycemic Mgmt Consult) 1 ea N/A UD PRN PRN Reason: Consult Stop: 01/07/21 02:56 Naloxone HCl (Naloxone Hcl 0.4 Mg/1 Ml Vial/Carp) 0.1 mg IV UD PRN PRN Reason: Opiate Overdose Stop: 01/07/21 02:41 Oxycodone HCl (Oxycodone Hcl Ir 5 Mg Tab (Immediate Release)) 5 mg PO Q4H PRN PRN Reason: MODERATE Pain (4,5,6) & Pre PT Stop: 12/22/20 02:41 Oxycodone HCl (Oxycodone Hcl Ir 5 Mg Tab (Immediate Release)) 10 mg PO Q4H PRN PRN Reason: SEVERE Pain (7,8,9,10) Stop: 12/22/20 02:41 Last Admin: 12/08/20 07:53 Dose: 10 mg Documented by: Polyethylene Glycol (Polyethylene (Miralax) 17 Gm Pack) 17 gm PO DAILY PRN PRN Reason: Constipation Stop: 01/07/21 02:41 Senna/Docusate Sodium (Docusate Sodium/Senna 50/8.6mg Tab) 2 tab PO HS ROSANA Stop: 01/07/21 20:59 Sertraline HCl (Sertraline Hcl 50 Mg Tablet) 50 mg PO DAILY [facility] Stop: 01/07/21 08:59 Last Admin: 12/08/20 07:49 Dose: 50 mg Documented by: (1) Closed intertrochanteric fracture of hip Encounter type: initial encounter Fracture alignment: displaced Laterality: right Qualified Code(s): S72.141A - Displaced intertrochanteric fracture of right femur, initial encounter for closed fracture
--- NOTE | 2020-12-08 08:53 | Consultation Report ---
DATE OF CONSULTATION: 12/08/2020 ORTHOPEDIC CONSULTATION CHIEF COMPLAINT: Right hip pain. HISTORY OF PRESENT ILLNESS: Nisreen is an 85-year-old female who tripped at home last night, falling onto her right buttock. She had immediate onset of pain in her right hip. She was brought to the Emergency Room by ambulance. X-rays were done demonstrating an intertrochanteric femur fracture. She was admitted to the hospital early this morning. She says this happened around 10:00 p.m. She does take Eliquis for atrial fibrillation and takes this twice a day. She did take her evening dose last night. The patient was seen and examined on the floor this morning. She reports the pain is located in her hip only. It does not radiate down her leg below the thigh or up into her back. She denies any previous problems with her hip. She lives in [facility] where she still cooks most of her meals and lives by herself. She does get assistance with outdoor maintenance at that facility. Denies any numbness or tingling down her leg. PAST MEDICAL HISTORY: 1. Atrial fibrillation, on Eliquis. 2. Diabetes. 3. Interstitial lung disease. 4. History of breast cancer. 5. Hypoxemia. 6. Hypertension. PAST SURGICAL HISTORY: 1. History of left total knee done by Dr. Loera. 2. History of cardiac catheterization. 3. Cataract surgery. 4. Tubal ligation. 5. Radical mastectomy. 6. Subtotal thyroidectomy. 7. Cholecystectomy. 8. Arthrocentesis. FAMILY HISTORY: Positive for hypertension, stroke, diabetes, breast cancer, prostate cancer and history of [place]. SOCIAL HISTORY: As per HPI. Denies tobacco and alcohol use. REVIEW OF SYSTEMS: A 14-point review of systems is negative except as noted in HPI. PHYSICAL EXAMINATION: GENERAL: A pleasant female, alert and oriented x3, in no apparent distress. She is mildly obese. PSYCHIATRIC: Mood and affect are appropriate. EXTREMITIES: Right hip exam shows the skin to be intact throughout. The right lower extremity is shortened and externally rotated. She has a palpable dorsalis pedis and posterior tibial pulses. She has ability to fire EHL, FHL, tib ant, gastrocsoleus. Sensory intact to the dorsal and plantar aspects of the foot as well as the thigh. Range of motion and strength testing deferred secondary to the fracture. RESULTS REVIEWED: X-rays done earlier this morning in the Emergency Room showed the patient to have an intertrochanteric right femur fracture. PLAN: I reviewed the diagnosis and treatment options with the patient. Surgery is recommended in order to give her the chance to regain her ability to walk, also it decreases the risk of bedsores and blood clots from bed rest, which would be the other alternative. After reviewing all the risks and benefits of surgery, she elected to proceed. All questions were answered. Informed consent was signed. We will plan on doing the surgery tomorrow since she did take her evening dose of Eliquis last night, even though it's held for now, it has not yet been cleared. This is the safest thing to do from a bleeding risk standpoint. Therefore, she can eat today and should be n.p.o. after midnight tonight. Continue bed rest. No additional DVT prophylaxis is recommended before the surgery since the Eliquis is still in her system at present. She can resume Eliquis on Friday morning, the day after surgery. TANYA
[2020-12-08] MEDS ORDERED: INSULIN GLARGINE SOLOSTAR 100 UNITS/ML 3 ML PEN SC ONE ×2 (09:00→12:00)
--- NOTE | 2020-12-08 11:18 | Pharmacy Report ---
Pharmacy Glycemic Short Note 2 - Date of Service December 08, 2020 - Glycemic Short BSG Results (Last 24 hours): 12/07/20 12/08/20 12/08/20 23:33 05:32 07:15 Glucose 185 H POC Glucose 127 H 156 H OUTPATIENT ANTIDIABETIC REGIMEN: * Lantus 24 units SQ AM * Novolog 6 units SQ AMPM + sliding scale (BSG 250-300 = 2 units, 301-350 = 4 units, 351-400 = 6 units, > 400 = 8 units) * HbA1c pending ASSESSMENT: * 85 yo F admitted last evening secondary to intertrochanteric right femur fracture following a mechanical fall. Pharmacy is consulted for inpatient glycemic management. Patient will be going to the OR on December 09 for an ORIF. Therefore, she will be NPO after midnight. * Fasting BSG this morning was 156 mg/dL. * Will reduce home Lantus dose by ~30% for today * Do not want to overload patient will basal insulin prior to going to OR tomorrow * Will trend postprandials and adjust Novolog scale as needed * For now, dosing based on weight/stress of two PLAN FOR INPATIENT GLYCEMIC CONTROL: * Hold outpatient oral diabetes medications * Basal insulin * Lantus 16 units SQ x 1 * Bolus insulin * NovoLog per scale ACHS or Q6hrs while NPO * Goal Range: Low 110 mg/dL - High 140 mg/dL * Correction Factor: 30 mg/dL/unit * Nutritional / Prandial insulin per carb ratio of 1 unit per 10 grams CHO consumed PLAN FOR DISCHARGE: * To be determined
--- NOTE | 2020-12-08 15:50 | Anesthesiology Consultation ---
Date of Service December 08, 2020 Assessment & Plan Chart Review Chart Review: Acceptable Risk for Surgery GETA only last eliquis PM 12/07/20 Consults Requested none ASA ASA4 Proposed Anesthesia Anesthesia Type: General Risk / Benefits Reviewed With: PT / POA / Parent / Guardian, Accepts Plan and Informed Consent Obtained History Surgery Operation Date: 12/09/20 07:30 Proposed Procedures p Right Intertrochanteric Femur Fracture Open Reduction Internal Fixation - Morro Castle MD Height/Weight Height: 5 ft 1 in Weight: 67.3 kg Allergies Allergy/AdvReac Type Severity Reaction Status Date / Time Iodinated Contrast Media Allergy Intermediate HIVES PER Verified 12/07/20 23:24 PATIENT acetaminophen [From Percocet] Allergy Unknown CAN'T Verified 12/07/20 23:24 REMEMBER atorvastatin Allergy Unknown CAN'T Verified 12/07/20 23:24 REMEMBER blueberry Allergy Unknown CAN'T Verified 12/07/20 23:24 REMEMBER codeine Allergy Unknown CAN'T Verified 12/07/20 23:24 REMEMBER ezetimibe Allergy Unknown CAN'T Verified 12/07/20 23:24 REMEMBER fluvoxamine Allergy Unknown CAN'T Verified 12/07/20 23:24 REMEMBER glyburide Allergy Unknown CAN'T Verified 12/07/20 23:24 REMEMBER meperidine Allergy Unknown CAN'T Verified 12/07/20 23:24 REMEMBER metformin Allergy Unknown CAN'T Verified 12/07/20 23:24 REMEMBER minocycline Allergy Unknown CAN'T Verified 12/07/20 23:24 REMEMBER mycophenolate mofetil Allergy Unknown CAN'T Verified 12/07/20 23:24 REMEMBER oxycodone Allergy Unknown CAN'T Verified 12/07/20 23:24 REMEMBER pioglitazone Allergy Unknown CAN'T Verified 12/07/20 23:24 REMEMBER pravastatin Allergy Unknown CAN'T Verified 12/07/20 23:24 REMEMBER Ynsjarj-Nng-Swp Reductase Allergy Unknown CAN'T Verified 12/07/20 23:24 Inhibitor REMEMBER Sulfa (Sulfonamide Allergy Unknown CAN'T Verified 12/07/20 23:24 Antibiotics) REMEMBER tetracycline Allergy Unknown CAN'T Verified 12/07/20 23:24 REMEMBER tramadol Allergy Unknown CAN'T Verified 12/07/20 23:24 REMEMBER lisinopril AdvReac Mild Cough - Verified 10/26/20 10:50 Prinizide Medications Home Medications Medication Instructions Recorded Confirmed Last Taken cholecalciferol (vitamin D3) 50 2,000 units PO DAILY #90 cap 04/13/19 12/07/20 12/07/20 mcg (2,000 unit) capsule nitroglycerin 0.4 mg sublingual 0.4 mg SL DIRECTED PRN 04/15/19 12/07/20 Unknown tablet red yeast rice 600 mg capsule 600 mg PO BID cap 10/18/19 12/07/20 12/07/20 levothyroxine 50 mcg tablet 50 mcg PO DAILY #90 tab 03/24/20 12/07/20 12/07/20 apixaban 5 mg tablet 5 mg PO BID 08/08/20 12/07/20 12/07/20 prednisone 10 mg tablet 10 mg PO DAILY #90 tab 08/21/20 12/07/20 12/07/20 clobetasol 0.05 % topical cream 1 applic TOPICAL DAILY #30 g 09/08/20 12/07/20 12/07/20 potassium chloride 20 mEq 40 meq PO DAILY 09/08/20 12/07/20 12/07/20 tablet,extended release(part/cryst) torsemide 10 mg tablet 30 mg PO DAILY tab 09/08/20 12/07/20 12/07/20 insulin lispro 100 unit/mL 6 unit SQ .COMPLEX #30 ml 09/25/20 12/07/20 12/07/20 subcutaneous solution blood sugar diagnostic #100 ea 10/17/20 10/26/20 Unknown metoprolol tartrate 25 mg tablet 25 mg PO BID #180 tab 10/26/20 12/07/20 12/07/20 silver sulfadiazine 1 % topical 1 applic TOPICAL BID #25 g 11/07/20 12/07/20 12/07/20 cream insulin glargine [Lantus U-100 24 unit SQ QAM 12/07/20 12/07/20 12/07/20 Insulin] sertraline 50 mg PO DAILY 12/07/20 12/07/20 12/07/20 Active Medications Generic Name Dose Route Start Last Admin Trade Name Freq PRN Reason Stop Dose Admin Hydromorphone HCl 0.5 mg 12/08/20 02:42 12/08/20 03:19 Hydromorphone Inj 0.5 Mg/0.5 Ml Syr IV 03/05/21 02:41 0.5 mg Q3H PRN Administration Pain (6,7,8,9,10) Lactated Ringer's 1,000 mls @ 150 mls/hr 12/07/20 23:15 12/08/20 12:20 Lr IV 01/06/21 23:14 150 mls/hr .Q6H40M ROSANA Administration Hydrocortisone Sodium 2 mls @ 4 mls/min 12/08/20 04:00 12/08/20 12:23 Succinate 100 mg/ Syringe IV 01/07/21 03:59 4 mls/min Q8H ROSANA Administration Insulin Aspart 0 units 12/08/20 08:00 12/08/20 12:22 Insulin Aspart 100 Units/Ml 3 Ml Pen SC 01/07/21 07:59 10 units ACHS ROSANA Administration Levothyroxine Sodium 50 mcg 12/08/20 06:30 12/08/20 05:34 Levothyroxine Sodium 50 Mcg Tablet PO 01/07/21 06:29 Not Given DAILYBB ROSANA Metoprolol Tartrate 25 mg 12/08/20 09:00 12/08/20 07:49 Metoprolol Tartrate 25 Mg Tab PO 01/07/21 08:59 25 mg BID ROSANA Administration Oxycodone HCl 10 mg 12/08/20 02:42 12/08/20 07:53 Oxycodone Hcl Ir 5 Mg Tab (Immediate Release) PO 12/22/20 02:41 10 mg Q4H PRN Administration SEVERE Pain (7,8,9,10) Sertraline HCl 50 mg 12/08/20 09:00 12/08/20 07:49 Sertraline Hcl 50 Mg Tablet PO 01/07/21 08:59 50 mg DAILY ROSANA Administration NPO Date Last Intake of Fluids: 12/08/20 Time Last Intake of Fluids: 23:59 Last Intake of Fluids Comment: Advised Date Last Intake of Solids: 12/08/20 Time Last Intake of Solids: 23:59 Last Intake of Solids Comment: Advised Past Medical History Medical History (Updated 12/08/20 @ 15:49 by Nereyda Emerson DO) (HFpEF) heart failure with preserved ejection fraction Acute pain of right hip Afib (01/07/14) BOOP (bronchiolitis obliterans with organizing pneumonia) CAD (coronary artery disease) Decubitus ulcers Diabetes DVT (deep venous thrombosis) (01/06/14) Hypertension Hypoxemia Interstitial lung disease PAF (paroxysmal atrial fibrillation) Personal history of breast cancer Exercise / Class Metabolic Activity III < 4 Walking/Shop/Light housework Past Family History Family History Father Hypertension Diabetes Mother Stroke Mother Diabetes Aunt Breast cancer Brother Prostate cancer Other Myocardial infarction Denies family history of Ovarian cancer Lung cancer Colorectal cancer Past Surgical History Surgical History H/O cardiac catheterization H/O cataract extraction bilateral H/O tubal ligation History of modified radical mastectomy History of subtotal thyroidectomy Hx of cholecystectomy S/P arthrocentesis Total knee replacement status Past Anesthesia History No Hx of Anesthesia Complications and No Family Hx of Anesthesia Complications History of PONV No Hx of PONV and No Hx of Motion Sickness Social History Smoking Status: Never smoker Hx Alcohol Use: No Hx Substance Use: No Physical Exam Vital Signs Last Vital Signs Temp 36.6 C 12/08/20 15:45 Pulse 64 12/08/20 15:45 Resp 18 12/08/20 15:45 BP 127/74 12/08/20 15:45 Pulse Ox 99 12/08/20 15:45 ENMT Mouth: no TMJ abnormality Thyromental Distance: > or= 3.5 Finger Breadths Mallampati Class: II Neck normal visual inspection and trachea midline; neck extension not limited Respiratory normal respiratory effort Auscultation: lungs clear to auscultation bilaterally and + diminished lung sounds Cardiovascular Rate/Rhythm: regular rate and + irregularly irregular Heart Sounds: no murmur Musculoskeletal Spine: normal cervical ROM Extremities: full ROM of extremities Neurologic moves all extremities Psychiatric Orientation: alert and oriented x 3 Testing Laboratory Results 12/07/20 23:33 12/07/20 23:33 PT 10.7 Seconds (9.0-12.0) 12/07/20 23:33 INR 1.1 (0.9-1.1) 12/07/20 23:33 APTT 23.0 Seconds (21.0-31.0) 12/07/20 23:33 Urine Color Yellow 12/07/20 23:56 Urine Appearance Clear (Clear) 12/07/20 23:56 Urine pH 5.0 (4.5-7.5) 12/07/20 23:56 Ur Specific [place] 1.021 (1.000-1.030) 12/07/20 23:56 Urine Protein Negative (Negative) 12/07/20 23:56 Urine Glucose (UA) Negative (Negative) 12/07/20 23:56 Urine Ketones Negative (Negative) 12/07/20 23:56 Urine Nitrite Negative (Negative) 12/07/20 23:56 Ur Leukocyte Esterase Negative (Negative) 12/07/20 23:56 Blood Type O Positive 12/07/20 23:33 Antibody Screen NEGATIVE 12/07/20 23:33 12/08/20 12/08/20 12/08/20 11:13 07:15 05:32 POC Glucose 229 H 156 H 127 H COVID Abbot neg 12/08/20 Electrocardiogram Date: 12/07/20 Findings: + NSR @ (69) and + NSST changes Chest X-Ray Date: 12/07/20 1. Cardiomegaly and chronic interstitial thickening. An L1 of mild pulmonary vascular congestion cannot be excluded and element of mild pulmonary vascular congestion cannot be excluded. 2. Chronic basilar opacities, likely representing atelectasis/scarring 3. Stable blunting of the lateral costophrenic angles Echocardiogram Date: 08/28/20 EF: 69 LV Function: normal RWMA: + none Valvular Disease: + MR (mild) mild TR LAE
[2020-12-08] MEDS: DOCUSATE SODIUM/SENNA 50/8.6MG TAB PO SCH (21:28)
--- NOTE | 2020-12-08 23:56 | Billing Data ---
Date of Service December 08, 2020 Coding Level of Care Code 00395 Initial Inpt Care Lvl 3
[2020-12-09] MEDS: LACTATED RINGER'S 1,000 ML IV SCH ×2 (01:45→11:31)
[2020-12-09] MEDS: oxyCODONE HCL IR 5 MG TAB (IMMEDIATE RELEASE) PO PRN (04:25)
[2020-12-09] MEDS: HYDROCORTISONE SOD 100 MG in SYRINGE 0 ML IV SCH ×2 (04:25→11:30)
--- NOTE | 2020-12-09 05:08 | Electrocardiogram Report ---
Test Reason : Blood Pressure : / mmHG Vent. Rate : 061 BPM Atrial Rate : 061 BPM P-R Int : 178 ms QRS Dur : 082 ms QT Int : 438 ms P-R-T Axes : 000 004 091 degrees QTc Int : 440 ms Poor data quality, interpretation may be adversely affected Normal sinus rhythm Abnormal ECG When compared with ECG of 08-JAN-2014 18:08, Vent. rate has decreased BY 30 BPM Criteria for Inferior infarct are no longer Present T wave inversion now evident in Anterolateral leads Confirmed by Aidan Mercado ([id number]) on 12/09/2020 5:08:22 AM Referred By: REFERRED SELF Confirmed By:Aidan Mercado
[2020-12-09] MEDS: LEVOTHYROXINE SODIUM 50 MCG TABLET PO SCH (05:17)
[2020-12-09] MEDS ORDERED: ceFAZolin 2000MG 2,000 MG/15 ML SYR IV SCH (06:00)
[2020-12-09] MEDS ORDERED: fentaNYL citrate 100 MCG/2 ML VIAL ONE ×2 (06:55→09:21)
[2020-12-09] MEDS ORDERED: ALBUT/IPRATROP 3MG/0.5MG NEB 3 ML VIAL ONE (07:09)
[2020-12-09] MEDS ORDERED: ePHEDrine sulfate 50 MG/ML AMP IV PRN (07:16)
[2020-12-09] MEDS ORDERED: fentaNYL citrate 100 MCG/2 ML VIAL IV PRN (07:16)
[2020-12-09] MEDS ORDERED: ATROPINE SULFATE 0.1 MG/ML 10ML SYR IV PRN (07:16)
[2020-12-09] MEDS ORDERED: MoRPHine SULFATE 10 MG/ML CARP/VIAL IV PRN (07:16)
[2020-12-09] MEDS ORDERED: ONDANSETRON INJ 2 MG/ML 2 ML VIAL IV PRN (07:16)
--- NOTE | 2020-12-09 07:24 | Orthopedic Progress Note ---
Date of Service December 09, 2020 Assessment & Plan (1) Closed intertrochanteric fracture of hip: To OR this morning. Re-admit to floor after surgery. Admission and Anticipated Discharge Date Admission Date: December 08, 2020 Subjective Patient did well overnight. NPO since midnight. States she is "ready for surgery." Physical Exam Physical Exam: R leg shortened, externally rotated. NVI Results & Data ([facility]) Vital Signs (Past 12 Hours) Vital Signs Temp Pulse Pulse Resp BP Pulse Ox 12/09/20 06:20 62 12/09/20 04:11 36.5 C 54 L 16 110/58 L 99 12/08/20 23:00 36.8 C 58 L 16 113/62 98 (1) Closed intertrochanteric fracture of hip Encounter type: initial encounter Fracture alignment: displaced Laterality: right Qualified Code(s): S72.141A - Displaced intertrochanteric fracture of right femur, initial encounter for closed fracture
[2020-12-09] MEDS ORDERED: BUPIVACAINE/EPINEPHRINE 0.5% MPF 1:200,000 30 ML VIAL ONE (07:42)
[2020-12-09 07:57] LABS: Estimated Average Glucose 169 mg/dl; Hemoglobin A1C 7.5 % (4.5-5.6)
[2020-12-09] MEDS ORDERED: MIDAZOLAM HCL 1 MG/ML 2ML VIAL ONE (08:57)
[2020-12-09] MEDS ORDERED: INSULIN GLARGINE SOLOSTAR 100 UNITS/ML 3 ML PEN SC SCH (09:00)
--- NOTE | 2020-12-09 09:40 | Cardiology Consultation ---
Date of Consultation December 09, 2020 Assessment & Plan (1) Preop cardiovascular exam: (2) CAD (coronary artery disease): (3) (HFpEF) heart failure with preserved ejection fraction: (4) PAF (paroxysmal atrial fibrillation): (5) Closed intertrochanteric fracture of hip: (6) Interstitial lung disease: History of Present Illness Attending Physician: Hoang Fontaine History of Present Illness Past medical history: 1. Paroxysmal atrial fibrillation, failed flecainide treatment, unable to take amiodarone 2. Chronic HFpEF 3. Hypertension 4. CAD, atherosclerotic changes in aorta and coronary arteries by chest CT 07/08 5. DM II 6. Chronic respiratory failure, requires 2 L O2 at night. Allergies Allergy/AdvReac Type Severity Reaction Status Date / Time Iodinated Contrast Media Allergy Intermediate HIVES PER Verified 12/07/20 23:24 PATIENT acetaminophen [From Percocet] Allergy Unknown CAN'T Verified 12/07/20 23:24 REMEMBER atorvastatin Allergy Unknown CAN'T Verified 12/07/20 23:24 REMEMBER blueberry Allergy Unknown CAN'T Verified 12/07/20 23:24 REMEMBER codeine Allergy Unknown CAN'T Verified 12/07/20 23:24 REMEMBER ezetimibe Allergy Unknown CAN'T Verified 12/07/20 23:24 REMEMBER fluvoxamine Allergy Unknown CAN'T Verified 12/07/20 23:24 REMEMBER glyburide Allergy Unknown CAN'T Verified 12/07/20 23:24 REMEMBER meperidine Allergy Unknown CAN'T Verified 12/07/20 23:24 REMEMBER metformin Allergy Unknown CAN'T Verified 12/07/20 23:24 REMEMBER minocycline Allergy Unknown CAN'T Verified 12/07/20 23:24 REMEMBER mycophenolate mofetil Allergy Unknown CAN'T Verified 12/07/20 23:24 REMEMBER oxycodone Allergy Unknown CAN'T Verified 12/07/20 23:24 REMEMBER pioglitazone Allergy Unknown CAN'T Verified 12/07/20 23:24 REMEMBER pravastatin Allergy Unknown CAN'T Verified 12/07/20 23:24 REMEMBER Ttswqqn-Nzl-Cpi Reductase Allergy Unknown CAN'T Verified 12/07/20 23:24 Inhibitor REMEMBER Sulfa (Sulfonamide Allergy Unknown CAN'T Verified 12/07/20 23:24 Antibiotics) REMEMBER tetracycline Allergy Unknown CAN'T Verified 12/07/20 23:24 REMEMBER tramadol Allergy Unknown CAN'T Verified 12/07/20 23:24 REMEMBER lisinopril AdvReac Mild Cough - Verified 10/26/20 10:50 Prinizide Home Medications Medication Instructions Recorded Confirmed Type cholecalciferol (vitamin D3) 50 2,000 units PO DAILY #90 cap 04/13/19 12/07/20 Rx mcg (2,000 unit) capsule nitroglycerin 0.4 mg sublingual 0.4 mg SL DIRECTED PRN 04/15/19 12/07/20 History tablet red yeast rice 600 mg capsule 600 mg PO BID cap 10/18/19 12/07/20 History levothyroxine 50 mcg tablet 50 mcg PO DAILY #90 tab 03/24/20 12/07/20 Rx apixaban 5 mg tablet 5 mg PO BID 08/08/20 12/07/20 History prednisone 10 mg tablet 10 mg PO DAILY #90 tab 08/21/20 12/07/20 Rx clobetasol 0.05 % topical cream 1 applic TOPICAL DAILY #30 g 09/08/20 12/07/20 Rx potassium chloride 20 mEq 40 meq PO DAILY 09/08/20 12/07/20 History tablet,extended release(part/cryst) torsemide 10 mg tablet 30 mg PO DAILY tab 09/08/20 12/07/20 History insulin lispro 100 unit/mL 6 unit SQ .COMPLEX #30 ml 09/25/20 12/07/20 Rx subcutaneous solution blood sugar diagnostic #100 ea 10/17/20 10/26/20 Rx metoprolol tartrate 25 mg tablet 25 mg PO BID #180 tab 10/26/20 12/07/20 Rx silver sulfadiazine 1 % topical 1 applic TOPICAL BID #25 g 11/07/20 12/07/20 Rx cream insulin glargine [Lantus U-100 24 unit SQ QAM 12/07/20 12/07/20 History Insulin] sertraline 50 mg PO DAILY 12/07/20 12/07/20 History Patient History Medical History (Updated 12/08/20 @ 15:49 by Nereyda Emerson DO) (HFpEF) heart failure with preserved ejection fraction Acute pain of right hip Afib (01/07/14) BOOP (bronchiolitis obliterans with organizing pneumonia) CAD (coronary artery disease) Decubitus ulcers Diabetes DVT (deep venous thrombosis) (01/06/14) Hypertension Hypoxemia Interstitial lung disease PAF (paroxysmal atrial fibrillation) Personal history of breast cancer Surgical History H/O cardiac catheterization H/O cataract extraction bilateral H/O tubal ligation History of modified radical mastectomy History of subtotal thyroidectomy Hx of cholecystectomy S/P arthrocentesis Total knee replacement status Family History Father Hypertension Diabetes Mother Stroke Mother Diabetes Aunt Breast cancer Brother Prostate cancer Other Myocardial infarction Denies family history of Ovarian cancer Lung cancer Colorectal cancer Social History Smoking Status: Never smoker Second Hand Exposure: No; Hx Alcohol Use: No Hx Substance Use: No Preferred Language: Panamanian Communication Ability: Effective Visual Impairment: Partially Limited Hearing Ability: Hard of Hearing 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 Required: No Beliefs That Will Affect Care: None marital status: / Current Living Situation: Alone Current Living Situation Comment: Lives at [facility] current occupational status: retired How many Children do You have: 3 Feels Safe at Home: Yes Childhood Exposure to Second-Hand Smoke: Yes Diet Comment: diabetic diet caffeine: Yes (1.5 cups a day, occasional peach tea) during the past year weight has: remained stable Dental Care, Regularly: Yes Physical Activity Frequency: Does not Exercise Seatbelt Use: always Sunscreen Use: No Assistive Devices: Denture - Upper, Glasses and Oxygen - at Night Results & Data ([facility]) Vital Signs (Past 12 Hours) Vital Signs Temp Pulse Pulse Resp BP Pulse Ox 12/09/20 06:20 62 12/09/20 04:11 36.5 C 54 L 16 110/58 L 99 12/08/20 23:00 36.8 C 58 L 16 113/62 98 (1) Closed intertrochanteric fracture of hip Encounter type: initial encounter Fracture alignment: displaced Laterality: right Qualified Code(s): S72.141A - Displaced intertrochanteric fracture of right femur, initial encounter for closed fracture
--- NOTE | 2020-12-09 09:40 | Fluoroscopy Report ---
FL hip RT 2-3V CLINICAL HISTORY: ORIF RIGHT HIP COMPARISON STUDY: Right hip radiographs December 07, 2020. FLUOROSCOPY TIME: 1 minute and 57 seconds. FLUOROSCOPIC IMAGES: 4 FINDINGS: Proximal right femoral screws fixate the intertrochanteric fracture of the right femur. Fra cture alignment appears anatomic. Hardware is intact. There are no unexpected radiopaque foreign bodi es. IMPRESSION: Expected findings following internal fixation of the intertrochanteric fracture of the r ight femur. ACT 112: Negative or not required by law. Electronically signed by: Vic Bermudez M.D. 12/09/2020 9:38 AM
--- NOTE | 2020-12-09 09:49 | Operative Report ---
Post Operative Report Pre & Post Diagnosis Operation Date: 12/09/20 07:30 Pre-Op Diagnosis: RIGHT HIP INTERTROCHANTERIC FEMUR FRACTURE Post-Op Diagnosis: RIGHT HIP INTERTROCHANTERIC FEMUR FRACTURE I identified the patient and participated in the time-out.: Yes Procedure Operation Date: 12/09/20 07:30 Actual Procedures p Right Intertrochanteric Femur Fracture Open Reduction Internal Fixation(Right) - Morro Castle MD Surgeon Morro Castle MD Impregnator Electrolytic Capacitors Анна De Leon PA-C Estimated Blood Loss 100 Findings Consistent with Post-Op Diagnosis Specimens None Anesthesia Type General Complications none Disposition Accompanied Patient To Recovery: No Disposition: Recovery Room Indications 85-year-old female fell onto her right hip at home on evening late around 10 PM. She is on Eliquis for atrial fibrillation and did take her evening dose on . She was admitted to the hospital around 2 in the morning on Friday with a diagnosis of right intertrochanteric femur fracture. I saw her on Friday morning and reviewed her x-rays. Surgery was recommended to reduce and stabilize the fracture and allow her to regain the ability to ambulate. We did delay her surgery until Friday morning because of her Eliquis presenting elevated risk for bleeding. I had a long discussion with her about the risks and benefits of surgery, alternatives to surgery, and expected outcomes. She understands that due to her age and medical comorbidities that she is at increased risk for both intra and postoperative complications. After reviewing all the risks and benefits of surgery she elected to proceed. All questions were answered. Informed consent was signed. Description of Procedure Patient was identified in the preoperative holding area where her surgical site was marked. She was brought back to the main operating room where general anesthesia was administered on the hospital bed. She was then carefully moved onto the fracture table. Perineal post was placed. She was gently slid down the bed and the nonoperative leg was flexed and abducted then secured with abundant padding to the well leg bo. The operative extremity was then placed into the traction boot with ample ABD padding placed around the heel and dorsum of the foot. Fluoroscopy was then brought in and we obtained our reduction by a using traction followed by internal rotation, then adduction of the hip. The hip was then prepped and draped in the normal sterile fashion. Prior to incision a multidisciplinary timeout was called. All in the room in agreement. I began by making a 10 cm long incision along the lateral aspect of hip starting just above the vastus tubercle and extending distally. I dissected through the subcutaneous tissues to the level of the fascia. Fascia was incised in line with the incision. Underlying vastus lateralis was then split in line with its fibers down onto the bone. Hohmann retractors were placed followed by Vela retractors to place the muscle on stretch and we continue to split the muscle with electrocautery identifying any crossing vessels which were cauterized. Once the lateral aspect of the proximal femur was exposed we then brought in the 135 degree angle guide. This was placed down in the appropriate position just below the vastus tubercle. In order to place the wire into the center center position we were going to have to use 130 degree plate. Therefore I lifted the distal aspect of the guide slightly off the bone and then drilled the guidewire up into the center center position using AP and lateral fluoroscopic guidance. Next a second wire was placed more cephalad within the femoral neck to act as a derotation screw. This more cephalad wire measured 80 mm so a 7.3 mm cannulated screw measuring 80 mm with long threads was then placed up into the femoral head. The more inferior wire for the DHS screw was then measured at 85 mm. We drilled up into the femoral head and then placed our 85 mm DHS screw. Excellent torque and fixation was achieved with the screw. A 4 hole 130 degree DHS standard barrel plate was then opened up on the back table then brought up onto the operating room field and slid down over the DHS screw. Minor adjustment had to be made to optimize the position of the plate along the lateral aspect of the femur. We then secured the plate to the bone using 4.5 mm cortical screws and bicortical fashion. Excellent fixation was obtained. This point fluoroscopy was used to confirm all of our screw lengths as well as the proper position of the plate and the reduction of the fracture all of which we are very happy with. We then irrigated out the wound with copious amounts normal saline. The vastus was closed with 0 Vicryl suture in running fashion. The fascia was closed with running #1 Vicryl. The subcutaneous layer was closed with running 2-0 Vicryl. The deep dermal layer was closed with running 2-0 Vicryl. Pedro were used for the skin. Sterile dressings were applied. Patient was then awoken from anesthesia and transferred recovery room in stable condition. Postoperative course: Patient will be readmitted to the floor. She will be weightbearing as tolerated on the right lower extremity. She can resume her Eliquis tomorrow morning for DVT prophylaxis. X-rays of the right hip are pending in the PACU at the time of this dictation. I attest to the content of the Intraoperative Record and any orders documented therein. Any exceptions are noted below.
[2020-12-09] MEDS ORDERED: NALOXONE HCL 0.4 MG/1 ML VIAL/CARP IV PRN (09:54)
[2020-12-09] MEDS ORDERED: SODIUM CHLORIDE 0.9% 1000ML 1,000 ML IV SCH (10:00)
[2020-12-09] MEDS ORDERED: METOCLOPRAMIDE HCL INJ 5 MG/ML 2 ML VIAL IV PRN (10:11)
[2020-12-09] MEDS ORDERED: diphenhydrAMINE 50 MG/ML VIAL IV PRN (10:12)
--- NOTE | 2020-12-09 10:48 | Anesthesiology Progress Note ---
Date of Service December 09, 2020 Anesthesia Post Procedure Vital Signs Vital Signs: Temp Pulse Pulse Pulse Resp BP Pulse Ox 12/09/20 10:40 65 22 121/49 L 93 12/09/20 10:30 66 22 122/54 L 95 12/09/20 10:20 36.5 C 80 20 137/76 94 12/09/20 10:10 72 22 148/66 H 96 12/09/20 10:00 84 22 161/76 H 100 12/09/20 09:50 37 C 86 12 179/95 H 100 12/09/20 06:20 62 12/09/20 04:11 36.5 C 54 L 16 110/58 L 99 12/08/20 23:00 36.8 C 58 L 16 113/62 98 12/08/20 19:15 36.7 C 68 20 120/65 97 12/08/20 15:45 36.6 C 64 18 127/74 99 12/08/20 15:01 58 L 12/08/20 11:23 36.7 C 65 20 100/57 L 95 Pain Intensity Right Hip: Pain Intensity: 6 Transfer of Care Handoff Completed per policy Notes Mental Status: alert / awake / arousable Patient Amnestic to Procedure: Yes Nausea / Vomiting: adequately controlled Pain: adequately controlled Airway Patency, RR, SpO2: stable & adequate BP & HR: stable & adequate Hydration State: stable & adequate Anesthetic Complications: no major complications apparent and Pt Satisfied with anesthetic care
[2020-12-09] MEDS: INSULIN ASPART 100 UNITS/ML 3 ML PEN SC SCH ×4 (11:25→22:24)
[2020-12-09] MEDS ORDERED: ACETAMINOPHEN 500 MG TAB ONE (11:28)
[2020-12-09] MEDS: SERTRALINE HCL 50 MG TABLET PO SCH (11:30)
[2020-12-09] MEDS: METOPROLOL TARTRATE 25 MG TAB PO SCH ×2 (11:30→22:02)
[2020-12-09] MEDS ORDERED: NITROGLYCERIN SL 0.4 MG/TAB TAB SL PRN (12:17)
[2020-12-09] MEDS ORDERED: ROCURONIUM BROMIDE 10 MG/ML 5 ML VIAL IV ONE (12:40)
[2020-12-09] MEDS ORDERED: PROPOFOL IV EMULSION 10 MG/ML 20 ML VIAL IV ONE (12:40)
[2020-12-09] MEDS ORDERED: LIDOCAINE HCL 2% 2 ML VIAL/AMP(20MG/ML) INFIL ONE (12:40)
[2020-12-09] MEDS ORDERED: ePHEDrine sulfate 50 MG/ML AMP ONE (12:40)
[2020-12-09] MEDS ORDERED: SUCCINYLCHOLINE CHLORIDE 20 MG/ML 10 ML VIAL IV ONE (12:40)
[2020-12-09] MEDS ORDERED: ONDANSETRON INJ 2 MG/ML 2 ML VIAL ONE (12:41)
[2020-12-09] MEDS ORDERED: NEOSTIGMINE METHYLSULFATE 5 MG/5 ML SYR ONE (12:41)
[2020-12-09] MEDS ORDERED: GLYCOPYRROLATE 0.2 MG/ML VIAL ONE (12:41)
[2020-12-09 12:47] LABS: Hematocrit (blood only) 34.5 % (37-47); Hemoglobin 10.6 g/dL (12.0-16.0); Mean Corpuscular Hemoglobin 31.2 pg (25-34); Mean Corpuscular Hgb Conc 30.7 g/dL (32-36); Mean Corpuscular Volume 101.5 fL (80-100); Mean Platelet Volume 9.6 fL (7.4-10.4); Platelet Count 161 K/uL (130-400); RDW Coefficient of Variation 13.8 % (11.5-14.5); RDW Standard Deviation 51.2 fL (36.4-46.3); White Blood Count 19.58 K/uL (4.8-10.8)
[2020-12-09 13:12] LABS: BUN Creatinine Ratio 12.6 (10-20); Calcium 8.8 mg/dl (8.5-10.1); Creatinine Clr Calc Pharmacy 40.9 ml/min; Est GFR (African American) 67.6; Est GFR (Non-African American) 58.3; Potassium 5.1 mmol/L (3.5-5.1)
[2020-12-09] MEDS: ACETAMINOPHEN 500 MG TAB PO SCH ×2 (13:12→22:01)
--- NOTE | 2020-12-09 13:41 | Pharmacy Report ---
Pharmacy Glycemic Short Note 2 - Date of Service December 09, 2020 - Glycemic Short BSG Results (Last 24 hours): 12/08/20 12/08/20 12/09/20 16:47 20:34 10:10 Glucose POC Glucose 176 H 189 H 199 H 12/09/20 12/09/20 11:40 12:34 Glucose 248 H POC Glucose 198 H OUTPATIENT ANTIDIABETIC REGIMEN: * Lantus 24 units SQ AM * Novolog 6 units SQ AMPM + sliding scale (BSG 250-300 = 2 units, 301-350 = 4 units, 351-400 = 6 units, > 400 = 8 units) * HbA1c pending ASSESSMENT: 12/09/20 * Patient received 44 units of insulin yesterday (24 units of basal and 20 units of bolus). Blood sugars yesterday were [phone] mg/dL. No fasting today as patient was in OR. Lunch BSG was 199 mg/dL. * Lantus given at lunchtime. * Will continue current regimen as BSGs appear to be reasonable. Patient did not receive any steroids during surgery. * HC reduced to once daily so Lantus dosing may require dose adjustment tomorrow morning. 12/08/20 * 85 yo F admitted last evening secondary to intertrochanteric right femur fracture following a mechanical fall. Pharmacy is consulted for inpatient glycemic management. Patient will be going to the OR on Friday, December 09 for an ORIF. Therefore, she will be NPO after midnight. * Fasting BSG this morning was 156 mg/dL. * Will reduce home Lantus dose by ~30% for today * Do not want to overload patient will basal insulin prior to going to OR tomorrow * Will trend postprandials and adjust Novolog scale as needed * For now, dosing based on weight/stress of two PLAN FOR INPATIENT GLYCEMIC CONTROL: * Hold outpatient oral diabetes medications * Basal insulin * Lantus 24 units SQ daily * Bolus insulin * NovoLog per scale ACHS or Q6hrs while NPO * Goal Range: Low 110 mg/dL - High 140 mg/dL * Correction Factor: 25 mg/dL/unit * Nutritional / Prandial insulin per carb ratio of 1 unit per 8 grams CHO consumed PLAN FOR DISCHARGE: * To be determined
[2020-12-09] MEDS ORDERED: ceFAZolin 2000MG 2,000 MG/15 ML SYR IV ONE (16:00)
[2020-12-09] MEDS: CLOBETASOL SCH (17:42)
[2020-12-09] MEDS ORDERED: NON-FORMULARY MEDICATION (Red Yeast Rice 600 mg capsule) PO SCH (21:00)
--- NOTE | 2020-12-09 21:55 | Hospitalist Progress Note ---
Date of Service December 09, 2020 Assessment & Plan (1) Closed intertrochanteric fracture of hip: 85 yo F w/ past medical history of HTN, A. 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 HGB wnl. pain is well controlled. Pathological fracture, right femur, in the setting of elderly female and fall from standing position Likely secondary to osteoporosis S/P repair Pain meds [facility] consult appreciated (2) PAF (paroxysmal atrial fibrillation): Chronic A. fib. resumed eliquis. rate controlled (3) Comminuted left humeral fracture: [place], no new complaints at this time. (4) (HFpEF) heart failure with preserved ejection fraction: Appears controlled. will continue home meds and monitor. (5) Diabetes: A1C 7.5 GLYCEMIC CONTRL is on board (6) Hypertension: B/P is controlled Admission and Anticipated Discharge Date Admission Date: December 08, 2020 Subjective Patient reports feeling well and has no new complaints. She feels her pain is well controlled. Review of Systems Review of Systems: All systems reviewed & are unremarkable except as noted in HPI & below Physical Exam Physical Exam: Constitutional: well developed and well nourished; not ill appearing Eyes: PERRL, conjunctivae normal, anicteric sclerae ENMT: external ear and nose normal, oropharynx normal Neck: normal visual inspection Respiratory: normal respiratory effort, lungs clear to auscultation Cardiovascular: RRR, no murmur, no edema Gastrointestinal (Abdomen): normal bowel sounds, soft, nontender, no hepatosplenomegaly Skin: no rashes, warm and dry Neurologic: Speech / Cognition: normal speech Motor/Sensory: no tremor Psychiatric: A+Ox3, euthymic affect Results & Data Results & Data ([facility]) Vital Signs (Past 12 Hours) Vital Signs Temp Pulse Pulse Resp BP Pulse Ox 12/09/20 19:34 36.9 C 71 18 100/55 L 98 12/09/20 15:08 36.4 C L 64 16 107/61 100 12/09/20 13:30 62 16 123/68 98 12/09/20 13:25 60 16 98 12/09/20 12:20 63 16 99 12/09/20 11:30 71 16 112/54 L 98 12/09/20 11:25 76 16 92 12/09/20 11:00 65 16 112/56 L 90 12/09/20 10:40 65 22 121/49 L 93 12/09/20 10:30 66 22 122/54 L 95 12/09/20 10:20 36.5 C 80 20 137/76 94 12/09/20 10:10 72 22 148/66 H 96 12/09/20 10:00 84 22 161/76 H 100 PG Care Time/CCT Total # of Minutes Spent Total Time Spent with Patient: Total time spent is greater than 50% in coordination of care (as documented) at patient's floor/unit and/or counseling patient: Coding Level of Care Code 29319 Subseq Hosp Care Lvl 3 Diagnoses Closed intertrochanteric fracture of hip S72.141A Encounter type: initial encounter Fracture alignment: displaced Laterality: right PAF (paroxysmal atrial fibrillation) I48.0 Comminuted left humeral fracture S42.302A (HFpEF) heart failure with preserved ejection fraction I50.30 Diabetes E11.9 Hypertension I10 Time Spent (min) 35 (1) Closed intertrochanteric fracture of hip Encounter type: initial encounter Fracture alignment: displaced Laterality: right Qualified Code(s): S72.141A - Displaced intertrochanteric fracture of right femur, initial encounter for closed fracture
[2020-12-09] MEDS: DOCUSATE SODIUM/SENNA 50/8.6MG TAB PO SCH (22:02)
[2020-12-09] MEDS: traMADol HCL 50 MG TABLET PO PRN (22:04)
[2020-12-09] MEDS: HYDROmorphone INJ 0.5 MG/0.5 ML SYR IV PRN (23:18)
[2020-12-09] MEDS: SILVER SULFADIAZINE 1% CR 50 GM JAR TOP SCH (23:51)
[2020-12-10] MEDS: CLOBETASOL SCH ×2 (00:42→09:24)
[2020-12-10] MEDS: ACETAMINOPHEN 500 MG TAB PO SCH ×3 (06:10→20:35)
[2020-12-10] MEDS: LEVOTHYROXINE SODIUM 50 MCG TABLET PO SCH (06:10)
[2020-12-10 06:34] LABS: Basophils # (auto) 0.03 K/uL (0-0.2); Basophils % (auto) 0.2 %; Eosinophils # (auto) 0.18 K/uL (0-0.5); Eosinophils % (auto) 1.2 %; Hemoglobin 10.4 g/dL (12.0-16.0); Immature Granulocytes # (auto) 0.08 K/uL (0.00-0.02); Immature Granulocytes % (auto) 0.5 %; Lymphocytes # (auto) 3.23 K/uL (1.2-3.4); Lymphocytes % (auto) 20.9 %; Mean Corpuscular Hemoglobin 31.4 pg (25-34); Mean Corpuscular Hgb Conc 30.6 g/dL (32-36); Mean Corpuscular Volume 102.7 fL (80-100); Mean Platelet Volume 9.4 fL (7.4-10.4); Monocytes # (auto) 1.71 K/uL (0.11-0.59); Neutrophils # (auto) 10.25 K/uL (1.4-6.5); Neutrophils % (auto) 66.2 %; Platelet Count 154 K/uL (130-400); RDW Coefficient of Variation 14.2 % (11.5-14.5); RDW Standard Deviation 53.4 fL (36.4-46.3); Red Blood Count 3.31 M/uL (4.2-5.4); White Blood Count 15.48 K/uL (4.8-10.8)
[2020-12-10 07:16] LABS: BUN Creatinine Ratio 18.8 (10-20); Calcium 8.6 mg/dl (8.5-10.1); Creatinine Clr Calc Pharmacy 58.1 ml/min; Est GFR (African American) 94.3; Est GFR (Non-African American) 81.4; Potassium 3.7 mmol/L (3.5-5.1)
[2020-12-10] MEDS: CHOLECALCIFEROL 1,000 UNITS 25 MCG TAB PO SCH (08:08)
[2020-12-10] MEDS: SERTRALINE HCL 50 MG TABLET PO SCH (08:08)
[2020-12-10] MEDS: APIXABAN 5 MG TABLET PO SCH ×2 (08:09→20:34)
[2020-12-10] MEDS: POTASSIUM CHLORIDE CRTAB 20 MEQ TABCR PO SCH (08:09)
[2020-12-10] MEDS: METOPROLOL TARTRATE 25 MG TAB PO SCH ×2 (08:10→20:10)
[2020-12-10] MEDS: INSULIN GLARGINE SOLOSTAR 100 UNITS/ML 3 ML PEN SC SCH (08:13)
[2020-12-10] MEDS: INSULIN ASPART 100 UNITS/ML 3 ML PEN SC SCH ×4 (08:23→20:39)
[2020-12-10] MEDS ORDERED: HYDROCORTISONE SOD 100 MG in SYRINGE 0 ML IV SCH (09:00)
[2020-12-10] MEDS ORDERED: LANTUS PER UNIT CHARGE SQ SCH (09:00)
[2020-12-10] MEDS ORDERED: TORSEMIDE 10 MG TAB PO SCH (09:00)
[2020-12-10] MEDS: SILVER SULFADIAZINE 1% CR 50 GM JAR TOP SCH ×2 (10:53→20:11)
--- NOTE | 2020-12-10 11:14 | Operative Report ---
Post Operative Report Pre & Post Diagnosis Operation Date: 12/09/20 07:30 Pre-Op Diagnosis: RIGHT HIP FRACTURE Post-Op Diagnosis: RIGHT HIP FRACTURE I identified the patient and participated in the time-out.: Yes Procedure Operation Date: 12/09/20 07:30 Actual Procedures p Right Intertrochanteric Femur Fracture Open Reduction Internal Fixation(Right) - Morro Castle MD Surgeon Morro Castle MD Middleware Systems Architect Анна De Leon PA-C Estimated Blood Loss 100 Findings Consistent with Post-Op Diagnosis Specimens none Complications none Description of Procedure See Dr Castle operative note. I was first responder during entire case to include prepping, draping, limb and instrument handling, would closure. I attest to the content of the Intraoperative Record and any orders documented therein. Any exceptions are noted below.
--- NOTE | 2020-12-10 11:21 | Pharmacy Report ---
Pharmacy Glycemic Short Note 2 - Date of Service December 10, 2020 - Glycemic Short BSG Results (Last 24 hours): 12/09/20 12/09/20 12/09/20 11:40 12:34 16:38 Glucose 248 H POC Glucose 198 H 224 H 12/09/20 12/10/20 12/10/20 20:44 06:14 07:35 Glucose 64 L POC Glucose 191 H 72 OUTPATIENT ANTIDIABETIC REGIMEN: * Lantus 24 units SQ AM * Novolog 6 units SQ AMPM + sliding scale (BSG 250-300 = 2 units, 301-350 = 4 units, 351-400 = 6 units, > 400 = 8 units) * HbA1c pending ASSESSMENT: 12/10/20 * Patient received 37 units of insulin yesterday (24 units of basal and 13 units of bolus). Blood sugars yesterday were [phone] mg/dL; Lantus was given late at 1130 after coming back from OR. * Patient's fasting BSG today was 77 mg/dL. Reduce Lantus by 20% to 20 units. * Continue weight-based stress of 3 Novolog. 12/09/20 * Patient received 44 units of insulin yesterday (24 units of basal and 20 units of bolus). Blood sugars yesterday were [phone] mg/dL. No fasting today as patient was in OR. Lunch BSG was 199 mg/dL. * Lantus given at lunchtime. * Will continue current regimen as BSGs appear to be reasonable. Patient did not receive any steroids during surgery. * HC reduced to once daily so Lantus dosing may require dose adjustment tomorrow morning. 12/08/20 * 85 yo F admitted last evening secondary to intertrochanteric right femur fracture following a mechanical fall. Pharmacy is consulted for inpatient glycemic management. Patient will be going to the OR on December 09 for an ORIF. Therefore, she will be NPO after midnight. * Fasting BSG this morning was 156 mg/dL. * Will reduce home Lantus dose by ~30% for today * Do not want to overload patient will basal insulin prior to going to OR tomorrow * Will trend postprandials and adjust Novolog scale as needed * For now, dosing based on weight/stress of two PLAN FOR INPATIENT GLYCEMIC CONTROL: * Hold outpatient oral diabetes medications * Basal insulin * Lantus 20 units SQ daily * Bolus insulin * NovoLog per scale ACHS or Q6hrs while NPO * Goal Range: Low 110 mg/dL - High 140 mg/dL * Correction Factor: 25 mg/dL/unit * Nutritional / Prandial insulin per carb ratio of 1 unit per 8 grams CHO consumed PLAN FOR DISCHARGE: * HbA1C indicates adequate glycemic control as an outpatient. Recommend co ntinuing current regimen as long as she does not have any hypoglycemia.
--- NOTE | 2020-12-10 11:24 | Orthopedic Progress Note ---
Date of Service December 10, 2020 Assessment & Plan (1) Closed intertrochanteric fracture of right hip: S/P ORIF right intertrochanteric femur fracture POD [address] Castle *WBAT R LE with walker *Ice right hip/femur as needed for pain *Continue current pain medication regimen *Medicine/Primary service continue to follow *Continue DVT prophylaxis with elequis, SCDs, and Abhinav Hose *Compressive dressing and tegaderm dressing intact. Will plan to remove compressive dressing 12/11/20 am *DC plans-referral to Referral placed to [facility]--pt motivated to go home *Continue to follow in house, plan to see 2wks post-op with Dr Castle in office for staple removal Present on Admission?: Yes Admission and Anticipated Discharge Date Admission Date: December 08, 2020 Subjective Patient resting in bed. Right hip pain is controlled. Had therapy this am, took a few steps with walker. No bowel movement yet. Not much of an appetite. Hoping to go to [facility] upon DC. Physical Exam Physical Exam: Resting in bed. Alert and Oriented. B SCDs and Abhinav Hose donned. 02/21 B EHL, TA, gastroc strength. Calves are soft. Sensation intact. Palpable DP and PT pulses. Right hip tegaderm dressing and compressive dressing intact. Surrounding skin intact. Results & Data ([facility]) Vital Signs (Past 12 Hours) Vital Signs Temp Pulse Pulse Resp BP Pulse Ox 12/10/20 09:19 73 12/10/20 07:50 36.8 C 74 18 103/62 98 12/10/20 03:44 36.4 C L 66 20 92/50 L 99 12/10/20 00:19 72 Laboratory Results 12/10/20 12/10/20 12/10/20 Range/Units 07:35 06:14 06:14 WBC (4.8-10.8) K/uL RBC (4.2-5.4) M/uL Hgb (12.0-16.0) g/dL Hct (37-47) % MCV (80-100) fL MCH (25-34) pg MCHC (32-36) g/dL RDW Std Deviation (36.4-46.3) fL RDW Coeff of Héctor (11.5-14.5) % Plt Count (130-400) K/uL MPV (7.4-10.4) fL Immature Gran % (Auto) % Neut % (Auto) % Lymph % (Auto) % [place] % (Auto) % Eos % (Auto) % Baso % (Auto) % Neut # (Auto) (1.4-6.5) K/uL Lymph # (Auto) (1.2-3.4) K/uL [place] # (Auto) (0.11-0.59) K/uL Eos # (Auto) (0-0.5) K/uL Baso # (Auto) (0-0.2) K/uL Immature Gran # (Auto) (0.00-0.02) K/uL Sodium 148 H (136-145) mmol/L Potassium 3.7 D (3.5-5.1) mmol/L Chloride 110 H (98-107) mmol/L Carbon Dioxide 36 H (21-32) mmol/L Anion Gap 2.0 L (3-11) BUN 12 (7-18) mg/dl Creatinine 0.64 (0.6-1.2) mg/dl Est Cr Clr Drug Dosing 58.1 ml/min Est GFR ( Amer) 94.3 Est GFR (Non-Af Amer) 81.4 BUN/Creatinine Ratio 18.8 (10-20) Glucose 64 L (70-99) mg/dl POC Glucose 72 (70-99) mg/dl Calcium 8.6 (8.5-10.1) mg/dl Total Creatine Kinase (26-192) U/L 25-OH Vitamin D Total 38.7 (30-100) ng/ml 12/10/20 12/09/20 12/09/20 Range/Units 06:14 20:44 16:38 WBC 15.48 H (4.8-10.8) K/uL RBC 3.31 L (4.2-5.4) M/uL Hgb 10.4 L (12.0-16.0) g/dL Hct 34.0 L (37-47) % MCV 102.7 H (80-100) fL MCH 31.4 (25-34) pg MCHC 30.6 L (32-36) g/dL RDW Std Deviation 53.4 H (36.4-46.3) fL RDW Coeff of Héctor 14.2 (11.5-14.5) % Plt Count 154 (130-400) K/uL MPV 9.4 (7.4-10.4) fL Immature Gran % (Auto) 0.5 % Neut % (Auto) 66.2 % Lymph % (Auto) 20.9 % [place] % (Auto) 11.0 % Eos % (Auto) 1.2 % Baso % (Auto) 0.2 % Neut # (Auto) 10.25 H (1.4-6.5) K/uL Lymph # (Auto) 3.23 (1.2-3.4) K/uL [place] # (Auto) 1.71 H (0.11-0.59) K/uL Eos # (Auto) 0.18 (0-0.5) K/uL Baso # (Auto) 0.03 (0-0.2) K/uL Immature Gran # (Auto) 0.08 H (0.00-0.02) K/uL Sodium (136-145) mmol/L Potassium (3.5-5.1) mmol/L Chloride (98-107) mmol/L Carbon Dioxide (21-32) mmol/L Anion Gap (3-11) BUN (7-18) mg/dl Creatinine (0.6-1.2) mg/dl Est Cr Clr Drug Dosing ml/min Est GFR ( Amer) Est GFR (Non-Af Amer) BUN/Creatinine Ratio (10-20) Glucose (70-99) mg/dl POC Glucose 191 H 224 H (70-99) mg/dl Calcium (8.5-10.1) mg/dl Total Creatine Kinase (26-192) U/L 25-OH Vitamin D Total (30-100) ng/ml 12/09/20 12/09/20 12/09/20 Range/Units 12:34 12:34 11:40 WBC 19.58 H (4.8-10.8) K/uL RBC 3.40 L (4.2-5.4) M/uL Hgb 10.6 L (12.0-16.0) g/dL Hct 34.5 L (37-47) % MCV 101.5 H (80-100) fL MCH 31.2 (25-34) pg MCHC 30.7 L (32-36) g/dL RDW Std Deviation 51.2 H (36.4-46.3) fL RDW Coeff of Éhctor 13.8 (11.5-14.5) % Plt Count 161 (130-400) K/uL MPV 9.6 (7.4-10.4) fL Immature Gran % (Auto) % Neut % (Auto) % Lymph % (Auto) % [place] % (Auto) % Eos % (Auto) % Baso % (Auto) % Neut # (Auto) (1.4-6.5) K/uL Lymph # (Auto) (1.2-3.4) K/uL [place] # (Auto) (0.11-0.59) K/uL Eos # (Auto) (0-0.5) K/uL Baso # (Auto) (0-0.2) K/uL Immature Gran # (Auto) (0.00-0.02) K/uL Sodium 144 (136-145) mmol/L Potassium 5.1 D (3.5-5.1) mmol/L Chloride 107 (98-107) mmol/L Carbon Dioxide 32 (21-32) mmol/L Anion Gap 5.0 (3-11) BUN 11 D (7-18) mg/dl Creatinine 0.90 (0.6-1.2) mg/dl Est Cr Clr Drug Dosing 40.9 ml/min Est GFR ( Amer) 67.6 Est GFR (Non-Af Amer) 58.3 BUN/Creatinine Ratio 12.6 (10-20) Glucose 248 H (70-99) mg/dl POC Glucose 198 H (70-99) mg/dl Calcium 8.8 (8.5-10.1) mg/dl Total Creatine Kinase 191 (26-192) U/L 25-OH Vitamin D Total (30-100) ng/ml
--- NOTE | 2020-12-10 15:17 | Hospitalist Progress Note ---
Date of Service December 10, 2020 Assessment & Plan (1) Closed intertrochanteric fracture of hip: Pathological fracture, right femur, in the setting of elderly female and fall from standing position, likely secondary to osteoporosis. - S/P ORIF right intertrochanteric femur fracture by Dr Castle on 12/10. - Minimal pain today. Weight-bearing as tolerated with walker. (2) PAF (paroxysmal atrial fibrillation): Chronic A. fib. - Continue Eliquis. - Rate-controlled with beta-mounika (3) Comminuted left humeral fracture: Chronic, no new complaints at this time. (4) (HFpEF) heart failure with preserved ejection fraction: Appears controlled. Euvolemic to slightly hypovolemic today. - Hold home torsemide tomorrow until we see kidney function (5) Diabetes: A1C was 7.5% this admission. - GLYCEMIC CONTRL is on board (6) Hypertension: B/P is controlled today at 100/60. 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 No report of shortness of breath today. - Continue chronic prednisone - DuoNebs PRN (8) DVT prophylaxis: Apixaban for afib Admission and Anticipated Discharge Date Admission Date: December 08, 2020 Subjective Feeling well today. Has been up and out of bed. Reports no fevers/chills, chest pain, shortness of breath, abdominal pain, nausea, or vomiting. Physical Exam Constitutional: WD/WN, vitals as above Eyes: EOM intact bilaterally; no conjunctival abnormality ENMT: external ear and nose normal, oropharynx normal Neck: trachea midline, no thyromegaly normal visual inspection Respiratory: normal respiratory effort, lungs clear to auscultation no respiratory distress Cardiovascular: RRR, no murmur, no edema Gastrointestinal (Abdomen): Inspection/Auscultation: abdomen normal to inspection; abdomen not distended Musculoskeletal: no cyanosis or clubbing, extremities motor strength 5/5 Skin: no rashes, warm and dry Neurologic: moves all extremities and awake Psychiatric: Orientation: alert, oriented to person and cooperative Results & Data Results & Data ([facility]) Vital Signs (Past 12 Hours) Vital Signs Temp Pulse Pulse Resp BP Pulse Ox Pulse Ox 12/10/20 12:48 94 12/10/20 11:40 94 02/21/21 11:21 36.7 C 72 18 102/58 L 98 12/10/20 09:19 73 12/10/20 07:50 36.8 C 74 18 103/62 98 12/10/20 03:44 36.4 C L 66 20 92/50 L 99 Pulse Ox 12/10/20 12:48 12/10/20 11:40 92 12/10/20 11:21 12/10/20 09:19 12/10/20 07:50 12/10/20 03:44 PG Care Time/CCT Total # of Minutes Spent Total Time Spent with Patient: Total time spent is greater than 50% in coordination of care (as documented) at patient's floor/unit and/or counseling patient: Coding Level of Care Code 64312 Subseq Hosp Care Lvl 2 Diagnoses Closed intertrochanteric fracture of hip S72.141A Encounter type: initial encounter Fracture alignment: displaced Laterality: right PAF (paroxysmal atrial fibrillation) I48.0 Comminuted left humeral fracture S42.302A (HFpEF) heart failure with preserved ejection fraction I50.30 Diabetes E11.9 Hypertension I10 COPD (chronic obstructive pulmonary disease) J44.9 DVT prophylaxis Z29.9 (1) Closed intertrochanteric fracture of hip Encounter type: initial encounter Fracture alignment: displaced Laterality: right Qualified Code(s): S72.141A - Displaced intertrochanteric fracture of right femur, initial encounter for closed fracture
[2020-12-10] MEDS ORDERED: NORMOSOL-R 500 ML IV ONE (17:44)
[2020-12-10] MEDS: traMADol HCL 50 MG TABLET PO PRN (20:34)
[2020-12-10] MEDS: DOCUSATE SODIUM/SENNA 50/8.6MG TAB PO SCH (20:34)
[2020-12-11] MEDS ORDERED: METOPROLOL TARTRATE 25 MG TAB PO ONE (01:35)
[2020-12-11] MEDS: ACETAMINOPHEN 500 MG TAB PO SCH ×3 (05:51→21:06)
[2020-12-11] MEDS: LEVOTHYROXINE SODIUM 50 MCG TABLET PO SCH (05:52)
[2020-12-11 06:27] LABS: Hematocrit (blood only) 29.8 % (37-47); Mean Corpuscular Hemoglobin 30.7 pg (25-34); Mean Corpuscular Hgb Conc 30.2 g/dL (32-36); Mean Corpuscular Volume 101.7 fL (80-100); Mean Platelet Volume 9.3 fL (7.4-10.4); Platelet Count 142 K/uL (130-400); RDW Coefficient of Variation 13.8 % (11.5-14.5); RDW Standard Deviation 52.5 fL (36.4-46.3); Red Blood Count 2.93 M/uL (4.2-5.4); White Blood Count 13.37 K/uL (4.8-10.8)
[2020-12-11 07:07] LABS: BUN Creatinine Ratio 26.2 (10-20); Creatinine Clr Calc Pharmacy 67.4 ml/min; Est GFR (African American) 99.1; Est GFR (Non-African American) 85.5; Magnesium 2.2 mg/dl (1.8-2.4); Potassium 3.4 mmol/L (3.5-5.1)
[2020-12-11] MEDS: APIXABAN 5 MG TABLET PO SCH ×2 (07:43→19:56)
[2020-12-11] MEDS: POTASSIUM CHLORIDE CRTAB 20 MEQ TABCR PO SCH (07:43)
[2020-12-11] MEDS: METOPROLOL TARTRATE 25 MG TAB PO SCH ×2 (07:44→19:55)
[2020-12-11] MEDS: SILVER SULFADIAZINE 1% CR 50 GM JAR TOP SCH ×2 (07:45→19:56)
[2020-12-11] MEDS: SERTRALINE HCL 50 MG TABLET PO SCH (07:45)
[2020-12-11] MEDS: CHOLECALCIFEROL 1,000 UNITS 25 MCG TAB PO SCH (07:45)
[2020-12-11] MEDS: traMADol HCL 50 MG TABLET PO PRN (07:45)
--- NOTE | 2020-12-11 08:47 | Hospitalist Progress Note ---
Date of Service December 11, 2020 Assessment & Plan (1) Closed intertrochanteric fracture of hip: Pathological fracture, right femur, in the setting of elderly female and fall from standing position, likely secondary to osteoporosis. 12/09/20 Right Intertrochanteric Femur Fracture Open Reduction Internal Fixation Surgeon: Morro Castle (2) PAF (paroxysmal atrial fibrillation): Chronic A. fib. - Continue Eliquis. - Rate-portly controlled with beta-mounika cardiology was asked to reconsult, initiated amiodarone 400 p.o. 3 times daily (3) Comminuted left humeral fracture: Chronic, no new complaints at this time. (4) (HFpEF) heart failure with preserved ejection fraction: Appears controlled. Euvolemic today. - Holding home torsemide kidney function is stable but blood pressure soft (5) Diabetes: A1C was 7.5% this admission. 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 No report of shortness of breath today. - Continue chronic prednisone - DuoNebs PRN (8) DVT prophylaxis: Apixaban for afib Admission and Anticipated Discharge Date Admission Date: December 08, 2020 Subjective pt did have episode of Afib RVR as her history that was accompanied with weakness that shortened her PT session, cardiology is evaluating and will try tyo convert with amiodarone as little room to push b mounika with her blood pressure, pt herself continues to feel weak and tired Review of Systems Review of Systems: Overall patient feels increased fatigue and tiredness today associated with her rapid atrial rate no headache, blurry or double vision no speech or swallowing issues no chest pain, pressure or sensation of palpitations Mild shortness of breath, but no cough or wheezes no abdominal pain, nausea or vomiting, diarrhea or constipation no dysuria, hematuria or frequency Does of some right hip pain no back pain, CVA tenderness or radicular pain Typical postoperative bruising at surgical site no focal signs of weakness or numbness or altered sensation no complaints of anxiety or depression.. Physical Exam Physical Exam: The patient appeared well nourished and normally developed. Vital signs as documented. Head exam is normocephalic atraumatic no scleral icterus Neck is without JVD, thyromegaly, or carotid bruits. Lungs are clear to auscultation, no focal loss of breath sounds Cardiac exam, Rhythm is irregular. Rate was 160 earlier now it is in the 110's to 120s. No murmurs, rubs or gallops. Abdominal exam reveals normal bowel sounds, soft non tender, no masses Extremities are nonedematous and both pedal pulses are present Neurologic exam is alert and oriented, no focal loss of strength or sensation Skin is with post op bruises or rashes Psychologically is without concerns for anxiety or depression Results & Data Results & Data ([facility]) Vital Signs (Past 12 Hours) Vital Signs Temp Pulse Pulse Resp BP Pulse Ox 12/11/20 07:19 87 12/11/20 07:14 97.7 F 90 16 104/56 L 94 12/11/20 04:23 97.9 F 73 18 101/51 L 95 12/11/20 02:40 78 12/11/20 01:34 120 H 98/60 L 12/10/20 22:29 97.5 F L 101 H 18 99/51 L 97 PG Care Time/CCT Total # of Minutes Spent Total Time Spent with Patient: Total time spent is greater than 50% in coordination of care (as documented) at patient's floor/unit and/or counseling patient: Coding Level of Care Code 13494 Subseq Hosp Care Lvl 3 Diagnoses Closed intertrochanteric fracture of hip S72.141A Encounter type: initial encounter Fracture alignment: displaced Laterality: right PAF (paroxysmal atrial fibrillation) I48.0 Comminuted left humeral fracture S42.302A (HFpEF) heart failure with preserved ejection fraction I50.30 Diabetes E11.9 Hypertension I10 COPD (chronic obstructive pulmonary disease) J44.9 DVT prophylaxis Z29.9 (1) Closed intertrochanteric fracture of hip Encounter type: initial encounter Fracture alignment: displaced Laterality: right Qualified Code(s): S72.141A - Displaced intertrochanteric fracture of right femur, initial encounter for closed fracture
[2020-12-11] MEDS: INSULIN ASPART 100 UNITS/ML 3 ML PEN SC SCH ×4 (09:06→21:07)
[2020-12-11] MEDS: INSULIN GLARGINE SOLOSTAR 100 UNITS/ML 3 ML PEN SC SCH (09:06)
--- NOTE | 2020-12-11 10:24 | Orthopedic Progress Note ---
Date of Service December 11, 2020 Assessment & Plan (1) Closed intertrochanteric fracture of right hip: S/P ORIF right intertrochanteric femur fracture POD [address] Castle *WBAT R LE with walker *Ice right hip/femur as needed for pain *Continue current pain medication regimen *Medicine/Primary service continue to follow *Continue DVT prophylaxis with elequis, SCDs, and Abhinav Hose *Compressive dressing and tegaderm dressing removed. Redressed with 4x4s and tegaderm. *DC plans-referral to Referral placed to [facility]--pt motivated to go home *Continue to follow in house, plan to see 2wks post-op with Dr Castle in office for staple removal, appointment made 3-5 at 10:30am Admission and Anticipated Discharge Date Admission Date: December 08, 2020 Subjective Feeling well today. Resting in bed. Pain controlled at rest. No PT yet today, was somewhat lightheaded during PT session yesterday. Reports no fevers/chills, chest pain, shortness of breath, abdominal pain, nausea, or vomiting. Says poor appetite today. No BM yet. Monterroso cath in place. Physical Exam Physical Exam: Resting in bed. Alert and Oriented. B SCDs and Abhinav Hose donned. 5/5 B EHL, TA, gastroc strength. Calves are soft. Sensation intact. Palpable DP and PT pulses. Right hip compressive dressing removed. Right hip tegaderm dressing somewhat saturated. Pedro intact. Surrounding skin intact. Painless log rolling. Results & Data ([facility]) Vital Signs (Past 12 Hours) Vital Signs Temp Pulse Pulse Resp BP Pulse Ox 12/11/20 07:19 87 12/11/20 07:14 36.5 C 90 16 104/56 L 94 12/11/20 04:23 36.6 C 73 18 101/51 L 95 12/11/20 02:40 78 12/11/20 01:34 120 H 98/60 L 12/10/20 22:29 36.4 C L 101 H 18 99/51 L 97 Laboratory Results 12/11/20 12/11/20 12/11/20 Range/Units 07:24 06:15 06:15 WBC 13.37 H (4.8-10.8) K/uL RBC 2.93 L (4.2-5.4) M/uL Hgb 9.0 L (12.0-16.0) g/dL Hct 29.8 L (37-47) % MCV 101.7 H (80-100) fL MCH 30.7 (25-34) pg MCHC 30.2 L (32-36) g/dL RDW Std Deviation 52.5 H (36.4-46.3) fL RDW Coeff of Héctor 13.8 (11.5-14.5) % Plt Count 142 (130-400) K/uL MPV 9.3 (7.4-10.4) fL Sodium 144 (136-145) mmol/L Potassium 3.4 L (3.5-5.1) mmol/L Chloride 103 (98-107) mmol/L Carbon Dioxide 38 H (21-32) mmol/L Anion Gap 3.0 (3-11) BUN 14 (7-18) mg/dl Creatinine 0.55 L (0.6-1.2) mg/dl Est Cr Clr Drug Dosing 67.4 ml/min Est GFR ( Amer) 99.1 Est GFR (Non-Af Amer) 85.5 BUN/Creatinine Ratio 26.2 H (10-20) Glucose 98 (70-99) mg/dl POC Glucose 111 H (70-99) mg/dl Calcium 8.0 L (8.5-10.1) mg/dl Magnesium 2.2 (1.8-2.4) mg/dl 12/10/20 12/10/20 12/10/20 Range/Units 20:24 16:59 11:24 WBC (4.8-10.8) K/uL RBC (4.2-5.4) M/uL Hgb (12.0-16.0) g/dL Hct (37-47) % MCV (80-100) fL MCH (25-34) pg MCHC (32-36) g/dL RDW Std Deviation (36.4-46.3) fL RDW Coeff of Héctor (11.5-14.5) % Plt Count (130-400) K/uL MPV (7.4-10.4) fL Sodium (136-145) mmol/L Potassium (3.5-5.1) mmol/L Chloride (98-107) mmol/L Carbon Dioxide (21-32) mmol/L Anion Gap (3-11) BUN (7-18) mg/dl Creatinine (0.6-1.2) mg/dl Est Cr Clr Drug Dosing ml/min Est GFR ( Amer) Est GFR (Non-Af Amer) BUN/Creatinine Ratio (10-20) Glucose (70-99) mg/dl POC Glucose 183 H 247 H 127 H (70-99) mg/dl Calcium (8.5-10.1) mg/dl Magnesium (1.8-2.4) mg/dl
[2020-12-11] MEDS: predniSONE 10 MG TABLET PO SCH (11:01)
[2020-12-11] MEDS ORDERED: AMIODARONE 200 MG TAB PO ONE (12:15)
--- NOTE | 2020-12-11 12:22 | Cardiology Progress Note ---
Date of Service December 11, 2020 Assessment & Plan (1) Preop cardiovascular exam: (2) CAD (coronary artery disease): (3) (HFpEF) heart failure with preserved ejection fraction: (4) PAF (paroxysmal atrial fibrillation): (5) Closed intertrochanteric fracture of hip: (6) Interstitial lung disease: The patient developed atrial fibrillation last evening with high heart rates and was moved to telemetry. She is currently comfortable in a rate controlled atrial fibrillation on her usual metoprolol and she is anticoagulated with Eliquis as she has previously been. Apparently, with physical therapy today she became short of breath and had atrial fibrillation again with RVR. Going to start her on amiodarone orally with 400 mg 3 times a day as a loading dose. I will also give her 20 mg of IV Lasix now. Her other medications can remain the same including the beta-mounika however, as we start the amiodarone we may have to hold the metoprolol. Admission and Anticipated Discharge Date Admission Date: December 08, 2020 Subjective Patient is comfortable sitting eating her lunch. Currently on telemetry she is in rate controlled atrial fibrillation. Review of Systems Review of Systems: All systems reviewed & are unremarkable except as noted in Subjective Physical Exam Physical Exam: General: no acute distress and stated age Head: normocephalic, no masses, lesions, tenderness or abnormalities Eyes: conjunctiva are pink and non-injected, sclera clear Neck: supple, no adenopathy, no bruits, normal jugular venous pulse, no hepatojugular reflux Chest: normal shape and normal respiratory effort Lungs: clear to auscultation and percussion Cardiac Exam: - irregular rate & rhythm, no murmurs gallops or rubs - normal S1, normal S2 Pulses: 2(+) throughout Abdomen: abdomen soft, non-tender, no abnormal masses and no hepatosplenomegaly Musculoskeletal: no gait disturbance, no joint inflammation, no deforming arthritis Extremities: no edema and no cyanosis Neuro: grossly normal exam Results & Data ([facility]) Vital Signs (Past 12 Hours) Vital Signs Temp Pulse Pulse Resp BP Pulse Ox 12/11/20 11:11 36.6 C 116 H 16 90/54 L 94 12/11/20 07:19 87 12/11/20 07:14 36.5 C 90 16 104/56 L 94 12/11/20 04:23 36.6 C 73 18 101/51 L 95 12/11/20 02:40 78 12/11/20 01:34 120 H 98/60 L Laboratory Results Laboratory Results - last 24 hr 12/10/20 12/10/20 12/11/20 16:59 20:24 06:15 WBC 13.37 H RBC 2.93 L Hgb 9.0 L Hct 29.8 L MCV 101.7 H MCH 30.7 MCHC 30.2 L RDW Std Deviation 52.5 H RDW Coeff of Héctor 13.8 Plt Count 142 MPV 9.3 Sodium Potassium Chloride Carbon Dioxide Anion Gap BUN Creatinine Est Cr Clr Drug Dosing Est GFR ( Amer) Est GFR (Non-Af Amer) BUN/Creatinine Ratio Glucose POC Glucose 247 H 183 H Calcium Magnesium SARS-CoV-2 Ag (Rapid) 12/11/20 12/11/20 12/11/20 06:15 07:24 11:29 WBC RBC Hgb Hct MCV MCH MCHC RDW Std Deviation RDW Coeff of Héctor Plt Count MPV Sodium 144 Potassium 3.4 L Chloride 103 Carbon Dioxide 38 H Anion Gap 3.0 BUN 14 Creatinine 0.55 L Est Cr Clr Drug Dosing 67.4 Est GFR ( Amer) 99.1 Est GFR (Non-Af Amer) 85.5 BUN/Creatinine Ratio 26.2 H Glucose 98 POC Glucose 111 H 143 H Calcium 8.0 L Magnesium 2.2 SARS-CoV-2 Ag (Rapid) 12/11/20 Unknown WBC RBC Hgb Hct MCV MCH MCHC RDW Std Deviation RDW Coeff of Héctor Plt Count MPV Sodium Potassium Chloride Carbon Dioxide Anion Gap BUN Creatinine Est Cr Clr Drug Dosing Est GFR ( Amer) Est GFR (Non-Af Amer) BUN/Creatinine Ratio Glucose POC Glucose Calcium Magnesium SARS-CoV-2 Ag (Rapid) Negative Medications Administered Current Inpatient Medications Acetaminophen (Acetaminophen 500 Mg Tab) 1,000 mg PO Q8 ROSANA; Protocol Stop: 01/08/21 13:59 Last Admin: 12/11/20 05:51 Dose: 1,000 mg Documented by: Amiodarone HCl (Amiodarone 200 Mg Tab) 400 mg PO TIDM ROSANA Stop: 01/10/21 16:59 Amiodarone HCl (Amiodarone 200 Mg Tab) 400 mg PO NOW ONE Stop: 12/11/20 12:16 Apixaban (Apixaban 5 Mg Tablet) 5 mg PO BID [facility] Stop: 01/09/21 08:59 Last Admin: 12/11/20 07:43 Dose: 5 mg Documented by: Bisacodyl (Bisacodyl 10 Mg Supp) 10 mg MA DAILY PRN PRN Reason: Constipation Stop: 01/07/21 02:41 Dextrose (Dextrose 50% 50 Ml Syringe) 25 - 50 ml IV UD PRN; Protocol PRN Reason: Hypoglycemia Protocol Stop: 01/07/21 02:59 Glucagon (Glucagon For Inj 1 Mg Vial) 1 mg SQ UD PRN; Protocol PRN Reason: Hypoglycemia Protocol Stop: 01/07/21 02:59 Glucose (Glucose 40% Gel 15 Gm Tube) 15 - 30 gm PO UD PRN; Protocol PRN Reason: Hypoglycemia Protocol Stop: 01/07/21 02:59 Glucose (Glucose 10 Tabs/Tube) 4 - 8 tabs PO UD PRN; Protocol PRN Reason: Hypoglycemia Protocol Stop: 01/07/21 02:59 Hydromorphone HCl (Hydromorphone Inj 0.5 Mg/0.5 Ml Syr) 0.25 mg IV Q3H PRN PRN Reason: Pain (1,2,3,4,5) & Pre PT Stop: 12/22/20 02:41 Hydromorphone HCl (Hydromorphone Inj 0.5 Mg/0.5 Ml Syr) 0.5 mg IV Q3H PRN PRN Reason: Pain (6,7,8,9,10) Stop: 12/22/20 02:41 Last Admin: 12/09/20 23:18 Dose: 0.5 mg Documented by: Furosemide 20 mg/ Syringe 2 mls @ 4 mls/min IV TODAY@1230 [facility] Stop: 12/11/20 12:31 Insulin Aspart (Insulin Aspart 100 Units/Ml 3 Ml Pen) 0 units SC ACHS [facility] Stop: 01/07/21 07:59 Last Admin: 12/11/20 12:04 Dose: 4 units Documented by: Insulin Glargine (Insulin Glargine Solostar 100 Units/Ml 3 Ml Pen) [facility] [place] Protocol Stop: 01/09/21 08:59 Last Admin: 12/11/20 09:06 Dose: 20 units Documented by: Levothyroxine Sodium (Levothyroxine Sodium 50 Mcg Tablet) 50 mcg PO DAILYBB [facility] Stop: 01/07/21 06:29 Last Admin: 12/11/20 05:52 Dose: 50 mcg Documented by: Magnesium Hydroxide (Magnesium Hydroxide Susp 30 Ml Udc) 30 ml PO DAILY PRN PRN Reason: Constipation Stop: 01/07/21 02:41 Metoprolol Tartrate (Metoprolol Tartrate 25 Mg Tab) 25 mg PO BID [facility] Stop: 01/07/21 08:59 Last Admin: 12/11/20 07:44 Dose: 25 mg Documented by: Miscellaneous (Carbohydrates For Hypoglycemia ) 15 - 30 gm PO UD PRN PRN Reason: Hypoglycemia Treatment Stop: 01/07/21 02:59 Miscellaneous Information (Pharmacy Glycemic Mgmt Consult) 1 ea N/A UD PRN PRN Reason: Consult Stop: 01/07/21 02:56 Naloxone HCl (Naloxone Hcl 0.4 Mg/1 Ml Vial/Carp) 0.1 mg IV UD PRN PRN Reason: Opiate Overdose Stop: 01/07/21 02:41 Nitroglycerin (Nitroglycerin Sl 0.4 Mg/Tab Tab) 0.4 mg SL UD PRN PRN Reason: Chest Pain Stop: 01/08/21 12:16 Polyethylene Glycol (Polyethylene (Miralax) 17 Gm Pack) 17 gm PO DAILY PRN PRN Reason: Constipation Stop: 01/07/21 02:41 Potassium Chloride (Potassium Chloride Crtab 20 Meq Tabcr) 40 meq PO DAILY [facility] Stop: 01/09/21 08:59 Last Admin: 12/11/20 07:43 Dose: 40 meq Documented by: Prednisone (Prednisone 10 Mg Tablet) 10 mg PO DAILY [facility] Stop: 01/09/21 08:59 Last Admin: 12/11/20 11:01 Dose: 10 mg Documented by: Senna/Docusate Sodium (Docusate Sodium/Senna 50/8.6mg Tab) 2 tab PO HS [facility] Stop: 01/07/21 20:59 Last Admin: 12/10/20 20:34 Dose: 2 tab Documented by: Sertraline HCl (Sertraline Hcl 50 Mg Tablet) 50 mg PO DAILY [facility] Stop: 01/07/21 08:59 Last Admin: 12/11/20 07:45 Dose: 50 mg Documented by: Silver Sulfadiazine (Silver Sulfadiazine 1% Cr 50 Gm Jar) 1 appln TOP BID ROSANA Stop: 01/08/21 20:59 Last Admin: 12/11/20 07:45 Dose: Not Given Documented by: Torsemide (Torsemide 10 Mg Tab) 30 mg PO DAILY ROSANA Stop: 01/09/21 08:59 Last Admin: 12/10/20 08:08 Dose: 30 mg Documented by: Tramadol HCl (Tramadol Hcl 50 Mg Tablet) 50 mg PO Q4H PRN PRN Reason: Pain Stop: 01/08/21 10:01 Last Admin: 12/11/20 07:45 Dose: 50 mg Documented by: Vitamin D (Cholecalciferol 1,000 Units 25 Mcg Tab) 2,000 units PO DAILY ROSANA Stop: 01/09/21 08:59 Last Admin: 12/11/20 07:45 Dose: 2,000 units Documented by: (1) Closed intertrochanteric fracture of hip Encounter type: initial encounter Fracture alignment: displaced Laterality: right Qualified Code(s): S72.141A - Displaced intertrochanteric fracture of right femur, initial encounter for closed fracture
[2020-12-11] MEDS ORDERED: FUROSEMIDE 20 MG in SYRINGE 0 ML IV SCH (12:30)
[2020-12-11] MEDS: AMIODARONE 200 MG TAB PO SCH (18:34)
[2020-12-11] MEDS: DOCUSATE SODIUM/SENNA 50/8.6MG TAB PO SCH (19:55)
[2020-12-12] MEDS: LEVOTHYROXINE SODIUM 50 MCG TABLET PO SCH (05:20)
[2020-12-12] MEDS: ACETAMINOPHEN 500 MG TAB PO SCH ×3 (05:20→21:38)
--- NOTE | 2020-12-12 07:32 | Orthopedic Progress Note ---
Date of Service December 12, 2020 Assessment & Plan (1) Closed intertrochanteric fracture of right hip: S/P ORIF right intertrochanteric femur fracture POD [address] Castle *WBAT R LE with walker *Ice right hip/femur *Try to wean off tramadol, ans use only tylenol only for pain as this may help her fatigue and sleepiness *DVT prophylaxis with eliquis, SCDs, and Abhinav Hose *Keep wound covered and dry. *DC plans-referral to Referral placed to [facility]--pt motivated to go home *Continue to follow in house, plan to see 2wks post-op with Dr Castle in office for staple removal, appointment made 3-5 at 10:30am Admission and Anticipated Discharge Date Admission Date: December 08, 2020 Subjective Patient seen and examined on AM rounds. She reports her right hip still hurts, but only when she moves it or stands on it. Says the pain medications she's getting (tylenol and tramadol) are helping. Feels fatigued, sleepy, not much appetite. Physical Exam Physical Exam: R hip: dressing that was changed yesterday is c/d/i. Not able to do a straight leg raise. Tolerates passive hip ROM without pain. Distally NVI. Results & Data ([facility]) Vital Signs (Past 12 Hours) Vital Signs Temp Pulse Pulse Resp BP Pulse Ox 12/12/20 07:02 86 12/12/20 03:00 36.4 C L 78 16 99/63 L 96 12/12/20 00:37 73 12/12/20 00:00 36.5 C 74 18 91/57 L 97 12/11/20 19:38 37.1 C 105 H 18 104/70 95
[2020-12-12] MEDS: POTASSIUM CHLORIDE CRTAB 20 MEQ TABCR PO SCH (07:51)
[2020-12-12] MEDS: APIXABAN 5 MG TABLET PO SCH ×2 (07:51→21:28)
[2020-12-12] MEDS: AMIODARONE 200 MG TAB PO SCH ×3 (07:51→17:46)
[2020-12-12] MEDS: predniSONE 10 MG TABLET PO SCH (07:52)
[2020-12-12] MEDS: CHOLECALCIFEROL 1,000 UNITS 25 MCG TAB PO SCH (07:52)
[2020-12-12] MEDS: METOPROLOL TARTRATE 25 MG TAB PO SCH ×2 (07:52→21:27)
[2020-12-12] MEDS: SERTRALINE HCL 50 MG TABLET PO SCH (07:52)
[2020-12-12] MEDS: INSULIN GLARGINE SOLOSTAR 100 UNITS/ML 3 ML PEN SC SCH (08:02)
[2020-12-12] MEDS: INSULIN ASPART 100 UNITS/ML 3 ML PEN SC SCH ×4 (08:02→21:32)
--- NOTE | 2020-12-12 09:18 | Cardiology Progress Note ---
Date of Service December 12, 2020 Assessment & Plan (1) PAF (paroxysmal atrial fibrillation): Summary of previous outpatient echocardiogram performed in [place] dated 08/28/2020, calculated LVEF 69%, severe left atrial enlargement, mild mitral regurgitation, mild tricuspid regurgitation. Patient with past history of paroxysmal atrial fibrillation. Per review of previous progress notes, she was felt to not be a candidate for amiodarone therapy due to her history of iodinated contrast media allergy. While hospitalized with close monitoring, this provides opportunity for oral amiodarone load and thus far she has tolerated this well. Will updated LFTs, and thyroid functions testing. Presenting CXR consistent with mild pulmonary edema. Continue metoprolol and amiodarone. Continue Eliquis. Would like for pt to remain on telemetry for now as her activity is increased. Repeat EKG in am. (2) (HFpEF) heart failure with preserved ejection fraction: Repeat electrolytes pending. Home dose of torsemide on hold and received IV furosemide x 1 yesterday. Volume status appears improved. Will hold of on diuretic today and likely resume oral torsemide 12/13. (3) Closed intertrochanteric fracture of right hip: s/p R intertrochaneteric ORIF 12/09/20. Admission and Anticipated Discharge Date Admission Date: December 08, 2020 Subjective Patient seen in follow up of paroxysmal atrial fibrillation, having been assessed by Dr Wilkins yesterday. Pt denies subjective palpitations or shortness of breath. Only complaint is mild pain at her operative site. Telemetry reveals ongoing AF, rates well controlled in the 70s, having trended toward improvement after 8 pm on 12/11/20. Review of Systems Review of Systems: All systems reviewed & are unremarkable except as noted in HPI & below Physical Exam Physical Exam: Intake and Output 12/11/20 12/12/20 12/12/20 22:59 06:59 14:59 Intake Total 300 / 460 100 / 460 Output Total 500 / 1225 200 / 1225 Balance -200 / -765 -100 / -765 Intake: Oral 300 / 460 100 / 460 Output: Urine Amount (Ca theter) 500 / 1225 200 / 1225 Mon[place]roso/Indwelli ng 500 / 1225 200 / 1225 Other: Weight 72 kg Weight Measureme nt Method Built in [facility] Constitutional: WD/WN, vitals as above Respiratory: normal respiratory effort, lungs clear to auscultation Cardiovascular: Rate/Rhythm: + irregularly irregular Heart Sounds: no murmur Extremities: no edema Gastrointestinal (Abdomen): normal bowel sounds, soft, nontender, no hepatosplenomegaly Neurologic: PERRL, EOMI, accommodation nl, no face palsy, no dysarthria Results & Data ([facility]) Vital Signs (Past 12 Hours) Vital Signs Temp Pulse Pulse Resp BP Pulse Ox 12/12/20 07:33 36.4 C L 87 16 103/60 98 12/12/20 07:02 86 12/12/20 03:00 36.4 C L 78 16 99/63 L 96 12/12/20 00:37 73 12/12/20 00:00 36.5 C 74 18 91/57 L 97 Laboratory Results Intake and Output 12/11/20 12/12/20 12/12/20 22:59 06:59 14:59 Intake Total 300 / 460 100 / 460 Output Total 500 / 1225 200 / 1225 Balance -200 / -765 -100 / -765 Intake: Oral 300 / 460 100 / 460 Output: Urine Amount (Catheter) 500 / 1225 200 / 1225 Mon[place]roso/Indwelling 500 / 1225 200 / 1225 Other: Weight 72 kg Weight Measurement Method Built in [facility] Diagnostic Findings EKG performed his am 12/12/20 and reviewed independently: AF at 69 bpm diffuse non specific repolarization changes, similar to prior.
[2020-12-12 09:22] LABS: Hematocrit (blood only) 29.8 % (37-47); Hemoglobin 9.2 g/dL (12.0-16.0); Mean Corpuscular Hemoglobin 31.3 pg (25-34); Mean Corpuscular Hgb Conc 30.9 g/dL (32-36); Mean Corpuscular Volume 101.4 fL (80-100); Mean Platelet Volume 10.1 fL (7.4-10.4); Platelet Count 173 K/uL (130-400); RDW Coefficient of Variation 13.7 % (11.5-14.5); RDW Standard Deviation 50.9 fL (36.4-46.3); Red Blood Count 2.94 M/uL (4.2-5.4)
[2020-12-12 09:54] LABS: Albumin Level 1.9 gm/dl (3.4-5.0); BUN Creatinine Ratio 21.6 (10-20); Calcium 8.4 mg/dl (8.5-10.1); Creatinine Clr Calc Pharmacy 54.9 ml/min; Est GFR (African American) 92.4; Est GFR (Non-African American) 79.8; Magnesium 2.2 mg/dl (1.8-2.4); Potassium 3.8 mmol/L (3.5-5.1)
[2020-12-12 10:04] LABS: Albumin Globulin Ratio 0.5 (0.9-2); Bilirubin,Total 0.6 mg/dl (0.2-1); Globulin 3.5 gm/dl (2.5-4.0); Thyroid Stimulating Hormone 0.882 uIu/ml (0.300-4.500); Total Protein 5.4 gm/dl (6.4-8.2)
[2020-12-12] MEDS: traMADol HCL 50 MG TABLET PO PRN ×3 (10:32→21:38)
[2020-12-12] MEDS: SILVER SULFADIAZINE 1% CR 50 GM JAR TOP SCH ×2 (10:35→21:30)
--- NOTE | 2020-12-12 16:40 | CT Scan Report ---
CT femur RT wo con CT DOSE: 677.77 mGycm CLINICAL HISTORY: Right thigh swelling history of an internally fixated intertrochanteric right hip f racture TECHNIQUE: Helical images were acquired in the transverse plane. Sagittal and coronal reformatted renea ges were acquired. A dose lowering technique was utilized adhering to the principles of ALARA. COMPARISON STUDY: Intraoperative fluoroscopic spot images performed 12/09/2020 FINDINGS: There is a moderate amount of rectal stool. There is colonic diverticulosis. There are skin rhett present within the upper lateral thigh. There is an internally fixated intertrochanteric right hip fracture. The fracture is fixated with a c ompression screw and lateral metallic plate as well as a supplemental cannulated femoral neck threade d screw. Alignment appears satisfactory. There is subcutaneous edema within the right thigh. No large intramuscular hematomas are visualized. Arthritic changes are present within the knee. There is a small effusion. There is trace gas within the lateral soft tissues abutting the superficial fascial layer IMPRESSION: 1. Expected postsurgical appearance status post internal fixation of an intertrochanteric right hip f racture 2. No large thigh hematoma is visualized 3. Arthritic changes within the knee with a small joint effusion 4. Mild subcutaneous thigh edema ACT 112: Negative or not required by law. Electronically signed by: Céasr Crespo M.D. 12/12/2020 4:39 PM
--- NOTE | 2020-12-12 16:52 | Electrocardiogram Report ---
Test Reason : Blood Pressure : / mmHG Vent. Rate : 069 BPM Atrial Rate : 000 BPM P-R Int : 000 ms QRS Dur : 084 ms QT Int : 412 ms P-R-T Axes : 000 047 019 degrees QTc Int : 441 ms Atrial fibrillation Nonspecific ST and T wave abnormality Abnormal ECG When compared with ECG of 07-DEC-2020 23:22, Atrial fibrillation has replaced Sinus rhythm T wave inversion no longer evident in Lateral leads Confirmed by Don Perez ([id number]) on 12/12/2020 4:51:59 PM Referred By: REFERRED SELF Confirmed By:Juan A Perez
--- NOTE | 2020-12-12 17:47 | Hospitalist Progress Note ---
Date of Service December 12, 2020 Assessment & Plan (1) Closed intertrochanteric fracture of hip: Pathological fracture, right femur, in the setting of elderly female and fall from standing position, likely secondary to osteoporosis. 12/09/20 Right Intertrochanteric Femur Fracture Open Reduction Internal Fixation Surgeon: Morro Castle (2) PAF (paroxysmal atrial fibrillation): Chronic A. fib. rates were up, did have amiodarone with cardiology oversight - Continue Eliquis and B mounika (3) Comminuted left humeral fracture: Chronic, no new complaints at this time. (4) (HFpEF) heart failure with preserved ejection fraction: Appears controlled. Euvolemic today. - Holding home torsemide kidney function remains stable but blood pressure soft (5) Diabetes: A1C was 7.5% this admission. 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 No report of shortness of breath today. - Continue chronic prednisone - DuoNebs PRN (8) DVT prophylaxis: Apixaban for afib Admission and Anticipated Discharge Date Admission Date: December 08, 2020 Subjective pt feels improved but still somewhat weakened Pt denies subjective palpitations or shortness of breath. Only complaint is mild pain at her operative site. Telemetry reveals ongoing AF, rates well controlled in the 70s Review of Systems Review of Systems: Overall patient feels less fatigue and tired no headache, blurry or double vision no speech or swallowing issues no chest pain, pressure or sensation of palpitations no further shortness of breath, no cough or wheezes no abdominal pain, nausea or vomiting, diarrhea or constipation no dysuria, hematuria or frequency Does of some right hip pain no back pain, CVA tenderness or radicular pain Typical postoperative bruising at surgical site no focal signs of weakness or numbness or altered sensation no complaints of anxiety or depression.. Physical Exam Physical Exam: The patient appeared well nourished and normally developed. Vital signs as documented. Head exam is normocephalic atraumatic no scleral icterus Neck is without JVD, thyromegaly, or carotid bruits. Lungs are clear to auscultation, no focal loss of breath sounds Cardiac exam, Rhythm is irregular. rates are better controlled, No murmurs, rubs or gallops. Abdominal exam reveals normal bowel sounds, soft non tender, no masses Extremities are nonedematous and both pedal pulses are present Neurologic exam is alert and oriented, no focal loss of strength or sensation Skin is with post op bruises or rashes Psychologically is without concerns for anxiety or depression Results & Data Results & Data ([facility]) Vital Signs (Past 12 Hours) Vital Signs Temp Pulse Pulse Resp BP Pulse Ox 12/12/20 15:55 98.1 F 76 18 107/58 L 97 12/12/20 11:42 97.7 F 103 H 18 106/55 L 99 12/12/20 07:33 97.5 F L 87 16 103/60 98 12/12/20 07:02 86 PG Care Time/CCT Total # of Minutes Spent Total Time Spent with Patient: Total time spent is greater than 50% in coordination of care (as documented) at patient's floor/unit and/or counseling patient: Coding Level of Care Code 20779 Subseq Hosp Care Lvl 3 Diagnoses Closed intertrochanteric fracture of hip S72.141A Encounter type: initial encounter Fracture alignment: displaced Laterality: right PAF (paroxysmal atrial fibrillation) I48.0 Comminuted left humeral fracture S42.302A (HFpEF) heart failure with preserved ejection fraction I50.30 Diabetes E11.9 Hypertension I10 COPD (chronic obstructive pulmonary disease) J44.9 DVT prophylaxis Z29.9 (1) Closed intertrochanteric fracture of hip Encounter type: initial encounter Fracture alignment: displaced Laterality: right Qualified Code(s): S72.141A - Displaced intertrochanteric fracture of right femur, initial encounter for closed fracture
[2020-12-12] MEDS: DOCUSATE SODIUM/SENNA 50/8.6MG TAB PO SCH (21:37)
[2020-12-13] MEDS: ACETAMINOPHEN 500 MG TAB PO SCH ×3 (05:51→21:31)
[2020-12-13] MEDS: LEVOTHYROXINE SODIUM 50 MCG TABLET PO SCH (07:40)
[2020-12-13] MEDS: APIXABAN 5 MG TABLET PO SCH ×2 (07:41→21:29)
[2020-12-13] MEDS: POTASSIUM CHLORIDE CRTAB 20 MEQ TABCR PO SCH (07:41)
[2020-12-13] MEDS: AMIODARONE 200 MG TAB PO SCH ×3 (07:41→17:28)
[2020-12-13] MEDS: predniSONE 10 MG TABLET PO SCH (07:42)
[2020-12-13] MEDS: CHOLECALCIFEROL 1,000 UNITS 25 MCG TAB PO SCH (07:42)
[2020-12-13] MEDS: SILVER SULFADIAZINE 1% CR 50 GM JAR TOP SCH ×2 (07:42→21:30)
[2020-12-13] MEDS: METOPROLOL TARTRATE 25 MG TAB PO SCH ×2 (07:42→21:30)
[2020-12-13] MEDS: SERTRALINE HCL 50 MG TABLET PO SCH (07:43)
[2020-12-13] MEDS: INSULIN GLARGINE SOLOSTAR 100 UNITS/ML 3 ML PEN SC SCH (08:22)
[2020-12-13] MEDS: INSULIN ASPART 100 UNITS/ML 3 ML PEN SC SCH ×5 (08:24→21:32)
--- NOTE | 2020-12-13 09:57 | Cardiology Progress Note ---
Date of Service December 13, 2020 Assessment & Plan (1) PAF (paroxysmal atrial fibrillation): Patient asymptomatic from an atrial fibrillation standpoint, and her ventricular rate is well controlled. Outpatient echocardiogram performed at [facility] dated 08/28/2020 revealed preserved LVEF, 69%, severe left atrial enlargement, mild mitral vegetation, mild tricuspid regurgitation. Amiodarone previously not added an outpatient due to concerns of her history of iodinated contrast media allergy. Thus far, she has tolerated loading dose of 400 3 times daily no evidence of allergic reaction. Liver function test and thyroid function tests are within normal limits. Continue metoprolol 25 mg twice daily, amiodarone 400 mg 3 times daily. I would like to keep her on telemetry, with amiodarone loading today, perhaps consider transfer to rehab tomorrow 12/14/2020 tomorrow. At time of discharge would reduce amiodarone to 200 mg twice daily. Stroke prophylaxis: Continue Eliquis. (2) (HFpEF) heart failure with preserved ejection fraction: Continue to hold torsemide 30 mg daily due to relative hypotension, most recent systolic blood pressure 98 mm Hg. Plan on resuming 12/14. (3) Closed intertrochanteric fracture of right hip: Presented status post mechanical fall. s/p R intertrochaneteric ORIF 12/09/20. Disposition: Keep outpatient cardiology follow up visit as already scheduled. 01/11/2021 10:00 AM Provider ILEANA Soler Cardiology [facility] Admission and Anticipated Discharge Date Admission Date: December 08, 2020 Subjective Patient seen in cardiology follow-up of recurrent paroxysmal atrial fibrillation, history of diastolic heart failure. She is sitting in the bedside chair. Currently her pain is well controlled and her blood pressure stable. Telemetry reveals ongoing atrial fibrillation, the rate is well controlled range of 60 to 70 bpm. Review of Systems Review of Systems: All systems reviewed & are unremarkable except as noted in HPI & below Physical Exam Physical Exam: Temp Pulse Resp BP Pulse Ox 36.2 C L 78 18 98/58 L 98 12/13/20 07:32 12/13/20 07:32 12/13/20 07:32 12/13/20 07:32 12/13/20 07:32 Constitutional: WD/WN, vitals as above Respiratory: normal respiratory effort, lungs clear to auscultation Cardiovascular: Rate/Rhythm: + irregularly irregular Heart Sounds: no murmur Gastrointestinal (Abdomen): normal bowel sounds, soft, nontender, no hepatosplenomegaly Neurologic: PERRL, EOMI, accommodation nl, no face palsy, no dysarthria Results & Data ([facility]) Vital Signs (Past 12 Hours) Vital Signs Temp Pulse Pulse Resp BP Pulse Ox 12/13/20 07:32 36.2 C L 78 18 98/58 L 98 12/13/20 07:24 66 12/13/20 02:58 36.3 C L 67 16 104/67 97 12/12/20 23:00 36.5 C 80 20 102/67 98
--- NOTE | 2020-12-13 10:08 | Orthopedic Progress Note ---
Date of Service December 13, 2020 Assessment & Plan (1) Closed intertrochanteric fracture of right hip: S/P ORIF right intertrochanteric femur fracture POD [address] Castle *WBAT R LE with walker *Ice right hip/femur *Try to wean off tramadol, ans use only tylenol only for pain as this may help her fatigue and sleepiness *DVT prophylaxis with eliquis, SCDs, and Abhinav Hose *Keep wound covered and dry. *DC plans-referral to Referral placed to [facility]--pt motivated to go home *Continue to follow in house, plan to see 2wks post-op with Dr Castle in office for staple removal, appointment made 3-5 at 10:30am Ok for discharge from ortho standpoint, CT scan shows no hematoma, no indications for surgery at this time. Admission and Anticipated Discharge Date Admission Date: December 08, 2020 Subjective Patient sitting in chair this morning. Awake and alert. States no pain at rest. Physical Exam Physical Exam: Right hip dressings clean, dry and intact. surrounding erythema and mild swelling right posterior thigh. Mild tenderness with palpation. no distal edema, 1+ dorsalis pedis pulse. Tolerates ankle ROM, strength 5/5. Able to slightly lift leg off of pillow today, pain with gentle log rolling of her right hip and knee. Results & Data ([facility]) Vital Signs (Past 12 Hours) Vital Signs Temp Pulse Pulse Resp BP Pulse Ox 12/13/20 07:32 36.2 C L 78 18 98/58 L 98 12/13/20 07:24 66 12/13/20 02:58 36.3 C L 67 16 104/67 97 12/12/20 23:00 36.5 C 80 20 102/67 98 Laboratory Results 12/13/20 12/12/20 12/12/20 Range/Units 07:28 20:45 16:45 POC Glucose 106 H 237 H 228 H (70-99) mg/dl 12/12/20 Range/Units 11:35 POC Glucose 169 H (70-99) mg/dl Diagnostic Findings CT femur RT wo con CT DOSE: 677.77 mGycm CLINICAL HISTORY: Right thigh swelling history of an internally fixated int ertrochanteric right hip fracture TECHNIQUE: Helical images were acquired in the transverse plane. Sagittal and coronal reformatted images were acquired. A dose lowering technique was utilized adhering to the principles of ALARA. COMPARISON STUDY: Intraoperative fluoroscopic spot images performed 12/09/2020 FINDINGS: There is a moderate amount of rectal stool. There is colonic diverticulosis. There are skin rhett present within the upper lateral thigh. There is an internally fixated intertrochanteric right hip fracture. The fracture is fixated with a compression screw and lateral metallic plate as well as a supplemental cannulated femoral neck threaded screw. Alignment appears satisfactory. There is subcutaneous edema within the right thigh. No large intramuscular hematomas are visualized. Arthritic changes are present within the knee. There is a small effusion. There is trace gas within the lateral soft tissues abutting the superficial fascial layer IMPRESSION: 1. Expected postsurgical appearance status post internal fixation of an intertrochanteric right hip fracture 2. No large thigh hematoma is visualized 3. Arthritic changes within the knee with a small joint effusion 4. Mild subcutaneous thigh edema
[2020-12-13] MEDS: CIPROFLOXACIN 500 MG TAB PO SCH ×2 (10:10→21:31)
--- NOTE | 2020-12-13 10:48 | Pharmacy Report ---
Pharmacy Glycemic Short Note 2 - Date of Service December 13, 2020 - Glycemic Short BSG Results (Last 24 hours): 12/12/20 12/12/20 12/12/20 11:35 16:45 20:45 POC Glucose 169 H 228 H 237 H 12/13/20 07:28 POC Glucose 106 H OUTPATIENT ANTIDIABETIC REGIMEN: * Lantus 24 units SQ AM * Novolog 6 units SQ AMPM + sliding scale (BSG 250-300 = 2 units, 301-350 = 4 units, 351-400 = 6 units, > 400 = 8 units) * HbA1c pending ASSESSMENT: 12/13: * Pt has received 34 units of insulin over the past 24hrs * 20 units of basal with Lantus * 14 units of bolus with NovoLog * BSGs [phone] mg/dl * AM fasting BSG in goal range with current Lantus orders. No changes needed. * Post-prandial BSGs rise throughout the day - most likely secondary to prednisone dosing of 10mg daily (outpatient dosing). Will tighten CR for lunch, dinner, and HS only based on BSG trends. NPH not needed for this low of a dose of prednisone. 12/10/20 * Patient received 37 units of insulin yesterday (24 units of basal and 13 units of bolus). Blood sugars yesterday were 199-224-191 mg/dL; Lantus was given late at 1130 after coming back from OR. * Patient's fasting BSG today was 77 mg/dL. Reduce Lantus by 20% to 20 units. * Continue weight-based stress of 3 Novolog. 12/09/20 * Patient received 44 units of insulin yesterday (24 units of basal and 20 units of bolus). Blood sugars yesterday were [phone] mg/dL. No fasting today as patient was in OR. Lunch BSG was 199 mg/dL. * Lantus given at lunchtime. * Will continue current regimen as BSGs appear to be reasonable. Patient did not receive any steroids during surgery. * HC reduced to once daily so Lantus dosing may require dose adjustment tomorrow morning. 12/08/20 * 85 yo F admitted last evening secondary to intertrochanteric right femur fracture following a mechanical fall. Pharmacy is consulted for inpatient glycemic management. Patient will be going to the OR on December 09 for an ORIF. Therefore, she will be NPO after midnight. * Fasting BSG this morning was 156 mg/dL. * Will reduce home Lantus dose by ~30% for today * Do not want to overload patient will basal insulin prior to going to OR tomorrow * Will trend postprandials and adjust Novolog scale as needed * For now, dosing based on weight/stress of two PLAN FOR INPATIENT GLYCEMIC CONTROL: * Hold outpatient oral diabetes medications * Basal insulin * Lantus 20 units SQ daily * Bolus insulin * NovoLog per scale ACHS or Q6hrs while NPO * Goal Range: Low 110 mg/dL - High 140 mg/dL * Correction Factor: 30 mg/dl/unit with Breakfsat and 25 mg/dL/unit for lunch, dinner, and HS * Nutritional / Prandial insulin per carb ratio of 1 unit per 10 grams CHO consumed for breakfast and 1 unit per 8g CHO for lunch, dinner, and HS PLAN FOR DISCHARGE: * HbA1C indicates adequate glycemic control as an outpatient. Recommend continuing current regimen as long as she does not have any hypoglycemia.
--- NOTE | 2020-12-13 12:23 | Electrocardiogram Report ---
Test Reason : Blood Pressure : / mmHG Vent. Rate : 086 BPM Atrial Rate : 300 BPM P-R Int : 000 ms QRS Dur : 084 ms QT Int : 408 ms P-R-T Axes : 000 043 045 degrees QTc Int : 488 ms Atrial fibrillation Nonspecific ST abnormality Abnormal ECG When compared with ECG of 12-DEC-2020 09:10, No significant change was found Confirmed by Don Perez ([id number]) on 12/13/2020 12:22:32 PM Referred By: REFERRED SELF Confirmed By:Juan A Perez
--- NOTE | 2020-12-13 18:24 | Hospitalist Progress Note ---
Date of Service December 13, 2020 Assessment & Plan (1) Closed intertrochanteric fracture of hip: Pathological fracture, right femur, in the setting of elderly female and fall from standing position, likely secondary to osteoporosis. 12/09/20 Right Intertrochanteric Femur Fracture Open Reduction Internal Fixation Surgeon: Morro Castle (2) PAF (paroxysmal atrial fibrillation): Chronic A. fib. rates were up, did have amiodarone with cardiology oversight - Continue Eliquis and B mounika (3) Comminuted left humeral fracture: Chronic, no new complaints at this time. (4) (HFpEF) heart failure with preserved ejection fraction: Appears controlled. Euvolemic today. - Holding home torsemide kidney function remains stable but blood pressure soft (5) Diabetes: A1C was 7.5% this admission. 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 No report of shortness of breath today. - Continue chronic prednisone - DuoNebs PRN (8) DVT prophylaxis: Apixaban for afib (9) Urinary tract infection: Citrobacter likely catheter related will be on short course of ciprofloxacin x3 days Admission and Anticipated Discharge Date Admission Date: December 08, 2020 Subjective Patient sitting in chair this morning. Awake and alert. States no pain at rest. Patient is fatigued after physical therapy. Cardiology wants to keep her for an additional day of oral amiodarone loading. She is found to have a Citrobacter UTI and started on antibiotics Review of Systems Review of Systems: Overall patient feels less fatigue and tired no headache, blurry or double vision no speech or swallowing issues no chest pain, pressure or sensation of palpitations no further shortness of breath, no cough or wheezes no abdominal pain, nausea or vomiting, diarrhea or constipation no dysuria, hematuria or frequency Does of some right hip pain no back pain, CVA tenderness or radicular pain Typical postoperative bruising at surgical site no focal signs of weakness or numbness or altered sensation no complaints of anxiety or depression.. Physical Exam Physical Exam: The patient appeared well nourished and normally developed. Vital signs as documented. Head exam is normocephalic atraumatic no scleral icterus Neck is without JVD, thyromegaly, or carotid bruits. Lungs are clear to auscultation, no focal loss of breath sounds Cardiac exam, Rhythm is irregular. rates are better controlled, No murmurs, rubs or gallops. Abdominal exam reveals normal bowel sounds, soft non tender, no masses Extremities are nonedematous and both pedal pulses are present Neurologic exam is alert and oriented, no focal loss of strength or sensation Skin is with post op bruises or rashes Psychologically is without concerns for anxiety or depression Results & Data Results & Data ([facility]) Vital Signs (Past 12 Hours) Vital Signs Temp Pulse Pulse Resp BP Pulse Ox 12/13/20 15:34 98.1 F 80 18 113/72 100 12/13/20 11:28 97.7 F 80 20 109/70 99 12/13/20 07:32 97.2 F L 78 18 98/58 L 98 12/13/20 07:24 66 PG Care Time/CCT Total # of Minutes Spent Total Time Spent with Patient: Total time spent is greater than 50% in coordination of care (as documented) at patient's floor/unit and/or counseling patient: Coding Level of Care Code 44608 Subseq Hosp Care Lvl 2 Diagnoses Closed intertrochanteric fracture of hip S72.141A Encounter type: initial encounter Fracture alignment: displaced Laterality: right PAF (paroxysmal atrial fibrillation) I48.0 Comminuted left humeral fracture S42.302A (HFpEF) heart failure with preserved ejection fraction I50.30 Diabetes E11.9 Hypertension I10 COPD (chronic obstructive pulmonary disease) J44.9 DVT prophylaxis Z29.9 Urinary tract infection N39.0 (1) Closed intertrochanteric fracture of hip Encounter type: initial encounter Fracture alignment: displaced Laterality: right Qualified Code(s): S72.141A - Displaced intertrochanteric fracture of right femur, initial encounter for closed fracture
[2020-12-13] MEDS: DOCUSATE SODIUM/SENNA 50/8.6MG TAB PO SCH (21:39)
[2020-12-14] MEDS: ACETAMINOPHEN 500 MG TAB PO SCH ×2 (06:06→12:29)
[2020-12-14] MEDS: LEVOTHYROXINE SODIUM 50 MCG TABLET PO SCH (06:06)
[2020-12-14 07:32] LABS: BUN Creatinine Ratio 20.2 (10-20); Calcium 8.9 mg/dl (8.5-10.1); Creatinine Clr Calc Pharmacy 56.2 ml/min; Est GFR (African American) 92.9; Est GFR (Non-African American) 80.2; Potassium 4.1 mmol/L (3.5-5.1)
[2020-12-14] MEDS: INSULIN GLARGINE SOLOSTAR 100 UNITS/ML 3 ML PEN SC SCH (08:53)
[2020-12-14] MEDS: INSULIN ASPART 100 UNITS/ML 3 ML PEN SC SCH ×3 (08:54→12:28)
[2020-12-14] MEDS: AMIODARONE 200 MG TAB PO SCH (09:11)
[2020-12-14] MEDS: CIPROFLOXACIN 500 MG TAB PO SCH (09:11)
[2020-12-14] MEDS: CHOLECALCIFEROL 1,000 UNITS 25 MCG TAB PO SCH (09:12)
[2020-12-14] MEDS: predniSONE 10 MG TABLET PO SCH (09:12)
[2020-12-14] MEDS: APIXABAN 5 MG TABLET PO SCH (09:12)
[2020-12-14] MEDS: POTASSIUM CHLORIDE CRTAB 20 MEQ TABCR PO SCH (09:12)
[2020-12-14] MEDS: SILVER SULFADIAZINE 1% CR 50 GM JAR TOP SCH (09:12)
[2020-12-14] MEDS: METOPROLOL TARTRATE 25 MG TAB PO SCH (09:12)
[2020-12-14] MEDS: SERTRALINE HCL 50 MG TABLET PO SCH (09:13)
--- NOTE | 2020-12-14 09:47 | Cardiology Progress Note ---
Date of Service December 14, 2020 Assessment & Plan (1) PAF (paroxysmal atrial fibrillation): Initially, and rapid ventricular response, rates now improved. Continue prior to hospital metoprolol tartrate 25 mg twice daily. Continue amiodarone, dose reduced to 200 mg twice daily. Continue Eliquis 5 mg twice daily for stroke prophylaxis. Patient is on Zoloft and ciprofloxacin along with amiodarone, however her QT interval is stable. (2) (HFpEF) heart failure with preserved ejection fraction: Patient euvolemic on exam. Will reintroduce her torsemide 30 mg daily which has been held for several days. (3) Closed intertrochanteric fracture of right hip: Presented status post mechanical fall. s/p R intertrochanteric ORIF 12/09/20 (4) Urinary tract infection: Citrobacter UTI. On planned 3 day course of Cipro, QT stable. DISPOSITION: Stable from cardiac standpoint for transfer to rehab when bed is available. Keep outpatient cardiology follow up visit as already scheduled. 01/11/2021 10:00 AM Provider ILEANA Soler Cardiology [facility] Admission and Anticipated Discharge Date Admission Date: December 08, 2020 Subjective Patient seen in follow-up of paroxysmal atrial fibrillation and her history of diastolic heart failure. She notes feeling well other than questioning if her medication changes could induce "bad dreams ". Denies any subjective lightheadedness, dizziness, or palpitations. Telemetry reveals atrial fibrillation, ventricular rates for the most part in the range of 60 to 80 bpm, she was up to the 90 bpm range this morning while using the bathroom. Review of Systems Review of Systems: All systems reviewed & are unremarkable except as noted in HPI & below Physical Exam Physical Exam: Temp Pulse Resp BP Pulse Ox 36.7 C 76 18 114/72 99 12/14/20 07:20 12/14/20 07:20 12/14/20 07:20 12/14/20 07:20 12/14/20 07:20 Constitutional: WD/WN, vitals as above Respiratory: normal respiratory effort, lungs clear to auscultation Cardiovascular: Rate/Rhythm: + irregularly irregular Heart Sounds: no murmur Vessels: no JVD Gastrointestinal (Abdomen): normal bowel sounds, soft, nontender, no hepatosplenomegaly Neurologic: PERRL, EOMI, accommodation nl, no face palsy, no dysarthria Results & Data ([facility]) Vital Signs (Past 12 Hours) Vital Signs Temp Pulse Pulse Resp BP Pulse Ox 12/14/20 07:20 36.7 C 76 18 114/72 99 12/14/20 07:11 62 12/14/20 02:57 36.4 C L 68 18 107/64 100 12/14/20 00:14 83 12/13/20 22:39 37.0 C 68 18 118/59 L 94 Laboratory Results Comprehensive Metabolic Panel 12/14/20 Range/Units 06:32 Sodium 141 (136-145) mmol/L Potassium 4.1 (3.5-5.1) mmol/L Chloride 103 (98-107) mmol/L Carbon Dioxide 37 H (21-32) mmol/L BUN 14 (7-18) mg/dl Creatinine 0.67 (0.6-1.2) mg/dl Glucose 129 H (70-99) mg/dl Calcium 8.9 (8.5-10.1) mg/dl Intake and Output 12/13/20 12/14/20 12/14/20 22:59 06:59 14:59 Intake Total 300 / 1320 Output Total 350 / 1125 200 / 1125 Balance -50 / 195 -200 / 195 Intake: Oral 300 / 1320 Output: Urine 350 / 550 200 / 550 Other: Other Intake Source Sips Weight 73.4 kg Weight Measurement Method Built in [facility] Diagnostic Findings EKG performed today 12/14/2020 at 629 with tracing reviewed independently revealed atrial fibrillation versus atypical atrial flutter with variable AV conduction at 67 bpm, mild nonspecific diffuse T wave flattening. Corrected QT interval is normal at 464 ms.
[2020-12-14] MEDS ORDERED: TORSEMIDE 10 MG TAB PO ONE (10:15)
--- NOTE | 2020-12-14 10:59 | Pharmacy Report ---
Pharmacy Glycemic Short Note 2 - Date of Service December 14, 2020 - Glycemic Short BSG Results (Last 24 hours): 12/13/20 12/13/20 12/13/20 11:00 16:49 20:12 Glucose POC Glucose 186 H 186 H 168 H 12/14/20 12/14/20 06:32 07:36 Glucose 129 H POC Glucose 126 H OUTPATIENT ANTIDIABETIC REGIMEN: * Lantus 24 units SQ AM * Novolog 6 units SQ AMPM + sliding scale (BSG 250-300 = 2 units, 301-350 = 4 units, 351-400 = 6 units, > 400 = 8 units) * HbA1c pending ASSESSMENT: 12/14: * Pt has received 37 units of insulin over the past 24hrs * 20 units of basal with Lantus * 17 units of bolus with NovoLog * BSGs [phone] mg/dl * AM fasting BSG in goal range with current Lantus orders. No changes needed. * Post-prandial BSGs rise throughout the day - most likely secondary to prednisone dosing of 10mg daily (outpatient dosing). Will tighten CR for breakfast only since breakfast to lunch is the biggest rise and then BSGs stable with currently orders. More prandial coverage at breakfast should keep subsequent BSGs in goal range with current orders. NPH not needed for this low of a dose of prednisone. 12/13: * Pt has received 34 units of insulin over the past 24hrs * 20 units of basal with Lantus * 14 units of bolus with NovoLog * BSGs [phone] mg/dl * AM fasting BSG in goal range with current Lantus orders. No changes needed. * Post-prandial BSGs rise throughout the day - most likely secondary to prednisone dosing of 10mg daily (outpatient dosing). Will tighten CR for lunch, dinner, and HS only based on BSG trends. NPH not needed for this low of a dose of prednisone. 12/10/20 * Patient received 37 units of insulin yesterday (24 units of basal and 13 units of bolus). Blood sugars yesterday were 199-224-191 mg/dL; Lantus was given late at 1130 after coming back from OR. * Patient's fasting BSG today was 77 mg/dL. Reduce Lantus by 20% to 20 units. * Continue weight-based stress of 3 Novolog. 12/09/20 * Patient received 44 units of insulin yesterday (24 units of basal and 20 units of bolus). Blood sugars yesterday were [phone] mg/dL. No fasting today as patient was in OR. Lunch BSG was 199 mg/dL. * Lantus given at lunchtime. * Will continue current regimen as BSGs appear to be reasonable. Patient did not receive any steroids during surgery. * HC reduced to once daily so Lantus dosing may require dose adjustment tomorrow morning. 12/08/20 * 85 yo F admitted last evening secondary to intertrochanteric right femur fracture following a mechanical fall. Pharmacy is consulted for inpatient glycemic management. Patient will be going to the OR on Friday, December 09 for an ORIF. Therefore, she will be NPO after midnight. * Fasting BSG this morning was 156 mg/dL. * Will reduce home Lantus dose by ~30% for today * Do not want to overload patient will basal insulin prior to going to OR tomorrow * Will trend postprandials and adjust Novolog scale as needed * For now, dosing based on weight/stress of two PLAN FOR INPATIENT GLYCEMIC CONTROL: * Hold outpatient oral diabetes medications * Basal insulin * Lantus 20 units SQ daily * Bolus insulin * NovoLog per scale ACHS or Q6hrs while NPO * Goal Range: Low 110 mg/dL - High 140 mg/dL * Correction Factor: 30 mg/dl/unit with Breakfsat and 25 mg/dL/unit for lunch, dinner, and HS * Nutritional / Prandial insulin per carb ratio of 1 unit per 9 grams CHO consumed for breakfast and 1 unit per 8g CHO for lunch, dinner, and HS PLAN FOR DISCHARGE: * HbA1C indicates adequate glycemic control as an outpatient. Recommend continuing current regimen as long as she does not have any hypoglycemia.
--- NOTE | 2020-12-14 12:20 | XRay Report ---
XR ankle RT min 3V routine HISTORY: 85 years-old Female new ankle pain, s/p fall acute right ankle pain status post fall COMPARISON: None TECHNIQUE: 3 views of the right ankle FINDINGS: Demineralized appearance of the bones with mild tibiotalar and hindfoot osteoarthritis. Mild to moder ate circumferential soft tissue swelling of the ankle without acute fracture or dislocation. Small an kle joint effusion. No osteochondral defect. Arterial calcifications. Minimal spurring of the calcane us. There is suggestion of an age-indeterminate fracture of the fifth metatarsal. IMPRESSION: 1. Soft tissue swelling without acute fracture or dislocation of the right ankle. 2. Suggested age-indeterminate fifth metatarsal fracture could be correlated with foot radiographs. ACT 112: Negative or not required by law. The above report was generated using voice recognition software. It may contain grammatical, syntax o r spelling errors. Electronically signed by: José Luis Vasquez M.D. 12/14/2020 12:19 PM
--- NOTE | 2020-12-14 16:51 | Electrocardiogram Report ---
Test Reason : Blood Pressure : / mmHG Vent. Rate : 067 BPM Atrial Rate : 288 BPM P-R Int : 000 ms QRS Dur : 088 ms QT Int : 440 ms P-R-T Axes : 057 036 039 degrees QTc Int : 464 ms Atrial flutter with variable A-V block Nonspecific ST and T wave abnormality Abnormal ECG When compared with ECG of 13-DEC-2020 07:40, Atrial flutter has replaced Atrial fibrillation Nonspecific T wave abnormality now evident in Lateral leads Confirmed by Don Perez ([id number]) on 12/14/2020 4:50:39 PM Referred By: REFERRED SELF Confirmed By:Juan A Perez
--- NOTE | 2020-12-14 18:18 | Discharge Summary ---
Date of Service December 14, 2020 Admission HPI Per Admitting Provider Nisreen Espinoza is here today with right hip pain after a fall. She was getting up, moved her cat off of her lap and started walking when she fell on her right side/butt. She did not trip, she did not feel like her legs gave out, and remembers the fall, before and after. No chest pain or palpitations around this time. She was on the ground for approx. 30 seconds when her daughter came and helped her up. She had severe pain in her right groin/hip worse with movement. She had her COVID shot one day prior and was feeling somewhat poor that day and "nervous" throughout the day. Her arm was sore but she did not note any other complications of the vaccination. She is conversing with me without trouble and daughter explains that she is at her baseline mentation. One month prior she fell and fractured her humerus. That fall was due to her tripping on her cane. 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 She has atrial fibrillation and is on Eliquis for this. She is insulin dependant diabetic taking lantus and humalog. She also has hypothyroidism and is on levothyroxine. Please update daughter Ashly Snow with any changes/updates [phone] Last dose of Elliquis was 12/07 PM. Principal Diagnosis Right femur fracture, pathological fracture from fall, status post open reduction internal fixation 12/09/2020 Age-indeterminate fifth metatarsal fracture not correlating with clinical pain Atrial fibrillation rapid ventricular response eventually controlled with amiodarone Citrobacter urinary tract infection Discharge Exam The patient appeared well Vital signs as documented. Lungs are clear to auscultation and appear unlabored Cardiac exam, Rhythm is regular.. No murmurs, rubs or gallops. Abdominal exam reveals normal bowel sounds, soft non tender, no masses Right femur and thigh still fairly bruised she has discomfort to her ankle x- rays are negative she may have a sprain of her ankle there is some ecchymosis on the dorsal lateral aspect Neurologic exam is alert and oriented, no focal loss of strength or sensation Skin is with bruises to her right leg Psychologically is without concerns for anxiety or depression. Discharge Data Allergies Allergy/AdvReac Type Severity Reaction Status Date / Time Iodinated Contrast Media Allergy Intermediate HIVES PER Verified 12/07/20 23:24 PATIENT acetaminophen [From Percocet] Allergy Unknown CAN'T Verified 12/07/20 23:24 REMEMBER atorvastatin Allergy Unknown CAN'T Verified 12/07/20 23:24 REMEMBER blueberry Allergy Unknown CAN'T Verified 12/07/20 23:24 REMEMBER codeine Allergy Unknown CAN'T Verified 12/07/20 23:24 REMEMBER ezetimibe Allergy Unknown CAN'T Verified 12/07/20 23:24 REMEMBER fluvoxamine Allergy Unknown CAN'T Verified 12/07/20 23:24 REMEMBER glyburide Allergy Unknown CAN'T Verified 12/07/20 23:24 REMEMBER meperidine Allergy Unknown CAN'T Verified 12/07/20 23:24 REMEMBER metformin Allergy Unknown CAN'T Verified 12/07/20 23:24 REMEMBER minocycline Allergy Unknown CAN'T Verified 12/07/20 23:24 REMEMBER mycophenolate mofetil Allergy Unknown CAN'T Verified 12/07/20 23:24 REMEMBER oxycodone Allergy Unknown CAN'T Verified 12/07/20 23:24 REMEMBER pioglitazone Allergy Unknown CAN'T Verified 12/07/20 23:24 REMEMBER pravastatin Allergy Unknown CAN'T Verified 12/07/20 23:24 REMEMBER Hssddxb-Ede-Lmh Reductase Allergy Unknown CAN'T Verified 12/07/20 23:24 Inhibitor REMEMBER Sulfa (Sulfonamide Allergy Unknown CAN'T Verified 12/07/20 23:24 Antibiotics) REMEMBER tetracycline Allergy Unknown CAN'T Verified 12/07/20 23:24 REMEMBER tramadol Allergy Unknown CAN'T Verified 12/07/20 23:24 REMEMBER lisinopril AdvReac Mild Cough - Verified 10/26/20 10:50 Prinizide Consultations 12/08/20 00:34 ED Decision to Admit Stat 12/08/20 02:42 Consult Anesthesiology Routine Consult Cardiology Routine Consult Case Management - Discharge Planning Routine Consult Case Management - Discharge Planning Routine Consult Orthopedic Surgery Routine Procedures Performed Operation Date: 12/09/20 07:30 Actual Procedures p Right Intertrochanteric Femur Fracture Open Reduction Internal Fixation(Right) - Morro Castle MD Ordered Studies 12/09/20 07:30 FL fluoroscopy <1hr Routine FL hip RT 2-3V Routine 12/12/20 15:37 CT femur RT wo con Urgent Hospital Course (1) Closed intertrochanteric fracture of hip: Pathological fracture, right femur, in the setting of elderly female and fall from standing position, likely secondary to osteoporosis. 12/09/20 Right Intertrochanteric Femur Fracture Open Reduction Internal Fixation Surgeon: Morro Castle Patient has been intermittently complaining of some right ankle pain there is some ecchymosis on the dorsal lateral aspect more near the base of the ankle and not directly over the fifth metatarsal, and is tender to touch however she is negative examinations for concern for bony injury. Because of her rehab potential with for femur fracture an x-ray was obtained prior to discharge which is not show any acute fractures. Comments of an age-indeterminate change in the fifth metatarsal do not correlate with physical examination tenderness subsequently we believe this is an old healed fracture Patient has post procedure acute blood loss anemia which has been stable with hemoglobin checked at time of discharge be 10.7 (2) PAF (paroxysmal atrial fibrillation): Chronic A. fib. rates were up, did have amiodarone with cardiology oversight committee's dose reduction to 200 mg twice daily at time of discharge - Continue Eliquis and B mounika (3) Comminuted left humeral fracture: Chronic, no new complaints at this time. (4) (HFpEF) heart failure with preserved ejection fraction: Appears controlled. Euvolemic today. - resume home torsemide kidney function remains stable but blood pressure soft (5) Diabetes: A1C was 7.5% this admission. 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 No report of shortness of breath today. - Continue chronic prednisone - DuoNebs PRN (8) DVT prophylaxis: Apixaban for afib (9) Urinary tract infection: Citrobacter likely catheter related will be on short course of ciprofloxacin x3 days Total Time Total Time Spent Total Time Spent (In Minutes): It required greater than 30 minutes to prepare this patient for discharge Discharge Plan Discharge Items Patient Disposition: Transfer Assisted Fac Reason For Visit: RIGHT HIP FRACTURE Discharge Diagnosis: Right intertrochanteric hip fracture with repair on 12/09 Dr Bell citrobacter uti atrial fibrillation now on amiodarone, ac with apixaban Activity: Per Instructions section Non-emergency contact: Primary Care Provider and Surgeon Call non-emergency contact if: your symptoms worsen Follow-up/Referrals: Randy Naik MD [Primary Care Provider] - Morro Castle MD [Physician] - 12/22/20 10:30 am Diet: Carb Consistent or DM2 Diet Texture: Easy to Chew Addtl Attending Provider Instructions: Pt was on scheduled tylenol for pain control post op ,but EMR would not allow me to order it on d/c due to conflict with possible allergy history she has tolerated this well during her stay and I would consider keeping it for a time to help with pain control while in Rehab, she was on 1000 tid. Her glucose control was with ssi, but her out pt regime is with standard meal time dosing , so will let that up to your facility prefererence, odered her home regime for you to have. Per post op intructions of Dr Castle *WBAT R LE with walker *Ice right hip/femur as needed for pain *Continue current pain medication regimen *Continue DVT prophylaxis with elequis, TEDs until f/u appt (can remove or pull down up to 4hrs a day) *Keep tegaderm dressing intact. *Plan to see 2wks post-op with Dr Castle in office for staple removal Pending Studies at Discharge: No Stand-Alone Forms: My [facility] Skilled Items Patient informed of condition?: Yes DNR: No Discharge Level of Care: Skilled Communicable Disease: No Discharge Prognosis: Stable Lines: None Urinary Catheter: No Medications and DC Order Prescriptions: New ciprofloxacin HCl 500 mg Tablet 500 mg PO BID Qty: 4 RF: 0 amiodarone 200 mg tablet 200 mg PO BID Qty: 60 RF: 5 lidocaine [Lidoderm] 5 % adhesive patch,medicated 1 patch topical DAILY Qty: 15 RF: 0 tramadol 50 mg Tablet 50 mg PO Q8H PRN (Reason: pain) Qty: 20 RF: 0 acetaminophen 500 mg capsule 1,000 mg PO TID Qty: 21 RF: 0 Continued levothyroxine 50 mcg tablet 50 mcg PO DAILY Qty: 90 RF: 3 prednisone 10 mg tablet 10 mg PO DAILY Qty: 90 RF: 3 insulin lispro [Humalog U-100 Insulin] 100 unit/mL solution 6 unit SQ .COMPLEX Qty: 30 RF: 3 silver sulfadiazine [Silvadene] 1 % cream 1 applic topical BID Qty: 25 RF: 0 red yeast rice 600 mg capsule 600 mg PO BID RF: 0 Eliquis 5 mg tablet 5 mg PO BID RF: 0 cholecalciferol (vitamin D3) 2,000 unit capsule 2,000 units PO DAILY Qty: 90 RF: 3 nitroglycerin 0.4 mg tablet, sublingual 0.4 mg SL DIRECTED PRN (Reason: Chest Pain) RF: 0 potassium chloride [Klor-Con M20] 20 mEq tablet,ER particles/crystals 40 meq PO DAILY RF: 0 torsemide 10 mg tablet 30 mg PO DAILY RF: 0 clobetasol 0.05 % cream 1 applic topical DAILY Qty: 30 RF: 5 metoprolol tartrate 25 mg tablet 25 mg PO BID Qty: 180 RF: 0 sertraline 50 mg tablet 50 mg PO DAILY RF: 0 Changed Lantus U-100 Insulin 100 unit/mL solution 20 unit SQ QAM Qty: 0 RF: 0 No Action (DME) OneTouch Ultra Blue Test Strip Strip See Dose Instructions .ROUTE .MEDSUPPLY Qty: 100 RF: 3 Discharge Orders: Discharge Order (Routine); Ordered 12/14/20 Ordered By: Jimmy Walker/Other Patient Handouts: Managing Type 2 Diabetes Admission Data Admit Date/Time: 12/08/20 02:00 Attending Provider: Jimmy Roman Admit Provider: Nitish Rivera Primary Care Provider: Randy Naik Other Providers: Indra Neves ; Frederick Bacon ; Morro Castle ; Prashant Murrieta ; Ricardo Banks Other Interventions: Discharge Summary Assessment (RN) Last Done: 12/14/20 11:15 Coding Level of Care Code D/C Day Management >30 mins Diagnoses Closed intertrochanteric fracture of hip S72.141A Encounter type: initial encounter Fracture alignment: displaced Laterality: right PAF (paroxysmal atrial fibrillation) I48.0 Comminuted left humeral fracture S42.302A (HFpEF) heart failure with preserved ejection fraction I50.30 Diabetes E11.9 Hypertension I10 COPD (chronic obstructive pulmonary disease) J44.9 DVT prophylaxis Z29.9 Urinary tract infection N39.0
== END 2020-12-14 14:03 | DRG 481 ==
LOC: ED 23:00 → 3N 12-08 02:00 → SUATTDRO 12-08 02:00 → 3N 12-08 02:26 → 2N 12-08 04:07